=== PATIENT | male | born 1980 | race American Indian/Alaskan Native ===

== ENCOUNTER 2019-08-09 19:21 | Emergency (ER) | payer SELFPAY ==
[2019-08-09 20:54] LABS: Bilirubin,Urine NEG (Negative); Blood,Urine NEG (Negative); Color,Urine Yellow (Yellow); Mucus,Urine FEW /HPF; Protein,Urine <15 mg/dL mg/dL (Negative)
--- NOTE | 2019-08-09 21:52 | Ultrasound Report ---
ULTRASOUND SCROTUM INDICATION / CLINICAL INFORMATION: right testicular. COMPARISON: None available. FINDINGS -- RIGHT TESTIS: Size = 4.6 x 1.9 x 3.6 cm. - Appearance: No significant abnormality. - Cyst or Mass: None. - Color Doppler Flow: No significant abnormality. EPIDIDYMIS: No significant abnormality. HYDROCELE: Small, simple VARICOCELE: None demonstrated. FINDINGS -- LEFT TESTIS: Size = 4.9 x 2.5 x 3.5 cm. - Appearance: No significant abnormality. - Cyst or Mass: None. - Color Doppler Flow: No significant abnormality. EPIDIDYMIS: No significant abnormality. HYDROCELE: Small, simple VARICOCELE: None demonstrated. ADDITIONAL FINDINGS: Multiple enlarged right inguinal lymph nodes, largest measuring 2.8 x 1.7 x 2.6 cm. These correspond to the area of reported pain and swelling. IMPRESSION: 1. Right internal lymphadenopathy. Signer Name: Loi Schroeder MD Signed: 08/09/2019 9:48 PM Workstation Name: [id number]
[2019-08-09 21:58] LABS: Basophils # (Auto) 0.1 K/mm3 (0.0-0.1); Eosinophils # (Auto) 0.1 K/mm3 (0.0-0.4); Eosinophils % (Auto) 1.1 % (0.0-4.3); Hematocrit 37.2 % (35.5-45.6); Hemoglobin 12.7 gm/dl (11.8-15.2); Lymphocytes # (Auto) 1.7 K/mm3 (1.2-5.4); Lymphocytes % (Auto) 31.8 % (13.4-35.0); Mean Corpuscular HGB Conc 34 % (32-34); Mean Corpuscular Volume 91 fl (84-94); Monocytes # (Auto) 0.6 K/mm3 (0.0-0.8); Platelet Count 200 K/mm3 (140-440); Red Blood Count 4.08 M/mm3 (3.65-5.03)
[2019-08-09] MEDS ORDERED: MORPHINE 4 MG/1 ML INJ IV ONE (22:03)
[2019-08-09 22:08] LABS: Alanine Aminotransferase 12 units/L (7-56); Albumin 3.9 g/dL (3.9-5); BUN/Creatinine Ratio 18; Blood Urea Nitrogen 18 mg/dL (9-20); Calcium 9.2 mg/dL (8.4-10.2); Hemolysis Index 22
--- NOTE | 2019-08-09 22:18 | Emergency Department Report ---
HPI - General Chief Complaint: Urogenital-Male Time Seen by Provider: 08/09/19 20:15 - HPI HPI: 39-year-old male presents to the emergency department with a complaint of right groin pain. The patient says that he was seen at [facility] about 4 days ago and diagnosed with a lymph node. However it has gotten larger and more painful since that time. The patient says that he was recently diagnosed with HIV. He has an appointment coming up with a infectious disease physician and has been started on medication but does not yet have a CD4 count or viral load. The patient is also concerned as he says he was told that he had inguinal hernia when he was seen for some swelling in the groin a year ago while in [place]. He has tried [id number] anti-inflammatories without any relief. He says that the swollen nodule is causing pain down his leg and towards the back. No fever. ED Past Medical Hx - Past Medical History Previous Medical History?: Yes Hx HIV: Yes Additional medical history: NEUROPATHY - Surgical History Past Surgical History?: No - Social History Smoking Status: Current Some Day Smoker Substance Use Type: None - Medications Home Medications: Home Medications Medication Instructions Recorded Confirmed Last Taken Type HYDROcodone/APAP 5-325 [[place] 1 each PO Q6HR PRN #10 tablet 08/09/19 Unknown Rx 5/325] ED Review of Systems ROS: Stated complaint: RT SIDE GROIN AREA/PAIN Other details as noted in HPI Comment: All other systems reviewed and negative Constitutional: denies: chills, fever Gastrointestinal: denies: abdominal pain, nausea, vomiting Genitourinary: testicular pain, other (groin pain and swelling) Musculoskeletal: back pain. denies: arthralgia Skin: denies: rash Neurological: denies: numbness, paresthesias Physical Exam - Physical Exam Vital Signs: Vital Signs 08/09/19 20:10 Temperature 98.3 F Pulse Rate 74 Respiratory 18 Rate Blood Pressure 133/77 O2 Sat by Pulse 100 Oximetry ED Course Vital Signs 08/09/19 20:10 Temperature 98.3 F Pulse Rate 74 Respiratory 18 Rate Blood Pressure 133/77 O2 Sat by Pulse 100 Oximetry ED Medical Decision Making - Lab Data Result diagrams: 08/09/19 21:30 08/09/19 21:30 - Radiology Data Radiology results: report reviewed CT ABDOMEN AND PELVIS WITH CONTRAST INDICATION / CLINICAL INFORMATION: Pelvic pain. TECHNIQUE: Axial CT images were obtained through the abdomen and pelvis after 100 mL Omnipaque [address] scans at this location are performed using CT dose reduction for ALARA by means of automated exposure control. COMPARISON: None available. Correlation is made with scrotal ultrasound performed earlier the same day FINDINGS: LOWER CHEST: No significant abnormality. LIVER: No significant abnormality. GALLBLADDER: No significant abnormality. BILE DUCTS: No significant abnormality. PANCREAS: No significant abnormality. SPLEEN: No significant abnormality. ADRENALS: No significant abnormality. RIGHT KIDNEY and URETER: No significant abnormality. LEFT KIDNEY and URETER: No significant abnormality. STOMACH and SMALL BOWEL: No significant abnormality. COLON: No significant abnormality. APPENDIX: Not identified. No evidence to suggest an acute inflammatory process in the right lower quadrant of the abdomen. PERITONEUM: No free fluid. No free air. No fluid collection. LYMPH NODES: No abdominal or pelvic lymphadenopathy. Multiple enlarged right inguinal lymph nodes are again seen, with associated surrounding inflammatory stranding. Also noted are several mildly enlarged left inguinal lymph nodes. The largest node on the right measures about 2 cm in short axis dimension, while the largest on the left is 1.3 cm in short axis. I do not appreciate any enlarged iliac chain or aortocaval nodes, although evaluation of the nodes in the abdominopelv ic cavity is limited by paucity of intra-abdominal fat. AORTA and ARTERIES: No significant abnormality. IVC and VEINS: No significant abnormality. URINARY BLADDER: No significant abnormality. REPRODUCTIVE ORGANS: No significant abnormality. ADDITIONAL FINDINGS: None. SKELETAL SYSTEM: No significant abnormality. IMPRESSION: 1. Bilateral inguinal adenopathy, greater on the right, with surrounding inflammatory changes in the right groin. ULTRASOUND SCROTUM INDICATION / CLINICAL INFORMATION: right testicular. COMPARISON: None available. FINDINGS -- RIGHT TESTIS: Size = 4.6 x 1.9 x 3.6 cm. - Appearance: No significant abnormality. - Cyst or Mass: None. - Color Doppler Flow: No significant abnormality. EPIDIDYMIS: No significant abnormality. HYDROCELE: Small, simple VARICOCELE: None demonstrated. FINDINGS -- LEFT TESTIS: Size = 4.9 x 2.5 x 3.5 cm. - Appearance: No significant abnormality. - Cyst or Mass: None. - Color Doppler Flow: No significant abnormality. EPIDIDYMIS: No significant abnormality. HYDROCELE: Small, simple VARICOCELE: None demonstrated. ADDITIONAL FINDINGS: Multiple enlarged right inguinal lymph nodes, largest measuring 2.8 x 1.7 x 2.6 cm. These correspond to the area of reported pain and swelling. IMPRESSION: 1. Right internal lymphadenopathy. - Medical Decision Making This patient presents with bilateral groin pain with right greater than left and some type of swelling nodule. He has a past medical history, allegedly, of a inguinal hernia. Recently he was seen at [facility] and was found have lymphadenopathy. On examination he does have moderate sized right-sided tender but mobile nodule or mass. A testicular and scrotal ultrasound was done that shows right internal lymphadenopathy. A CT scan of the abdomen and pelvis with IV contrast shows bilateral inguinal lymphadenopathy with right greater than left. Labs are unremarkable. Vital signs stable throughout his ED course. He appears safe for discharge home. He has follow-up with an infectious disease doctor early next week. He will return to the emergency Department with any worsening of his symptoms or any acute distress. - Differential Diagnosis lymphadenopathy, inguinal hernia, [place] Critical Care Time: No Critical care attestation.: If time is entered above; I have spent that time in minutes in the direct care of this critically ill patient, excluding procedure time. ED Disposition Clinical Impression: Inguinal lymphadenopathy Disposition: DC-01 TO HOME OR SELFCARE Is pt being admited?: No Condition: Stable Instructions: Lymphadenopathy (ED) Additional Instructions: Please follow-up with your primary care physician or infectious disease physician regarding your lymphadenopathy. Return to the emergency Department with any worsening of your symptoms or any acute distress. You have been prescribed a medication that is sedating and therefore should not be taken prior to driving, working, and responsible for children and in no way should be mixed with alcohol of any quantity. Prescriptions: HYDROcodone/APAP 5-325 [[place] 5/325] 1 each PO Q6HR PRN #10 tablet PRN Reason: Pain Referrals: PRIMARY CARE, [Primary Care Provider] - 2-3 Days Time of Disposition: 23:58
--- NOTE | 2019-08-09 23:36 | Cat Scan Report ---
CT ABDOMEN AND PELVIS WITH CONTRAST INDICATION / CLINICAL INFORMATION: Pelvic pain. TECHNIQUE: Axial CT images were obtained through the abdomen and pelvis after 100 mL Omnipaque [address] scans at this location are performed using CT dose reduction for ALARA by means of automated exposure control. COMPARISON: None available. Correlation is made with scrotal ultrasound performed earlier the same day FINDINGS: LOWER CHEST: No significant abnormality. LIVER: No significant abnormality. GALLBLADDER: No significant abnormality. BILE DUCTS: No significant abnormality. PANCREAS: No significant abnormality. SPLEEN: No significant abnormality. ADRENALS: No significant abnormality. RIGHT KIDNEY and URETER: No significant abnormality. LEFT KIDNEY and URETER: No significant abnormality. STOMACH and SMALL BOWEL: No significant abnormality. COLON: No significant abnormality. APPENDIX: Not identified. No evidence to suggest an acute inflammatory process in the right lower michele drant of the abdomen. PERITONEUM: No free fluid. No free air. No fluid collection. LYMPH NODES: No abdominal or pelvic lymphadenopathy. Multiple enlarged right inguinal lymph nodes are again seen, with associated surrounding inflammatory stranding. Also noted are several mildly enlarg ed left inguinal lymph nodes. The largest node on the right measures about 2 cm in short axis dimensi on, while the largest on the left is 1.3 cm in short axis. I do not appreciate any enlarged iliac abdelrahman in or aortocaval nodes, although evaluation of the nodes in the abdominopelvic cavity is limited by p aucity of intra-abdominal fat. AORTA and ARTERIES: No significant abnormality. IVC and VEINS: No significant abnormality. URINARY BLADDER: No significant abnormality. REPRODUCTIVE ORGANS: No significant abnormality. ADDITIONAL FINDINGS: None. SKELETAL SYSTEM: No significant abnormality. IMPRESSION: 1. Bilateral inguinal adenopathy, greater on the right, with surrounding inflammatory changes in the right groin. Signer Name: Loi Schroeder MD Signed: 08/09/2019 11:32 PM Workstation Name: [id number]
[2019-08-10 00:39] VITALS: BP 126/84
== END 2019-08-10 00:40 | disposition home or self-care (01) ==
LOC: ED 19:21
DX: R59.0 Localized enlarged lymph nodes (principal); F17.200 Nicotine dependence, unspecified, uncomplicated; Z88.8 Allergy status to other drugs, medicaments and biological substances; Z88.2 Allergy status to sulfonamides
CPT/HCPCS: 36415; 74177; 80053; 81001; 82140; 85025; 93975; 96374; 99284; J2270; Q9967

== ENCOUNTER 2020-07-26 11:22 | Emergency (ER) | payer MEDICAID ==
--- NOTE | 2020-07-26 11:37 | Event Note ---
ED Screening Note Date of service: 07/26/20 Time: 11:36 ED Screening Note: Patient complains of cough, shortness of breath, body aches, and chills x1 week. Patient has history of HIV, states compliance with antiretroviral medications This initial assessment/diagnostic orders/clinical plan/treatment(s) is/are subject to change based on patients health status, clinical progression and re- assessment by fellow clinical providers in the ED. Further treatment and workup at subsequent clinical providers discretion. Patient/guardian urged not to elope from the ED as their condition may be serious if not clinically assessed and managed. Initial orders include: Labs Chest x-ray
[2020-07-26 11:41] VITALS: BP 152/104
--- NOTE | 2020-07-26 12:08 | XRay Report ---
CHEST 2 VIEWS INDICATION / CLINICAL INFORMATION: Shortness of breath and cough for one week. COMPARISON: None available. FINDINGS: SUPPORT DEVICES: None. HEART / MEDIASTINUM: The heart size and pulmonary vasculature are normal. LUNGS / PLEURA: No significant pulmonary or pleural abnormality. No pneumothorax. ADDITIONAL FINDINGS: No significant additional findings. IMPRESSION: No acute findings. Signer Name: Andrea Hamm MD Signed: 07/26/2020 12:03 PM Workstation Name: [id number]
[2020-07-26 12:28] LABS: Basophils % (Auto) 0.6 % (0.0-1.8); Eosinophils # (Auto) 0.1 K/mm3 (0.0-0.4); Eosinophils % (Auto) 2.7 % (0.0-4.3); Hematocrit 40.8 % (35.5-45.6); Hemoglobin 13.9 gm/dl (11.8-15.2); Lymphocytes # (Auto) 1.3 K/mm3 (1.2-5.4); Lymphocytes % (Auto) 38.2 % (13.4-35.0); Mean Corpuscular HGB Conc 34 % (32-34); Mean Corpuscular Volume 88 fl (84-94); Monocytes # (Auto) 0.3 K/mm3 (0.0-0.8); Monocytes % (Auto) 10.3 % (0.0-7.3); Platelet Count 139 K/mm3 (140-440); Red Blood Count 4.64 M/mm3 (3.65-5.03); Red Cell Distribution Width 13.5 % (13.2-15.2)
[2020-07-26 12:51] LABS: Alanine Aminotransferase 12 units/L (7-56); Albumin 4.1 g/dL (3.9-5); BUN/Creatinine Ratio 10; Blood Urea Nitrogen 10 mg/dL (9-20); Calcium 9.7 mg/dL (8.4-10.2); Hemolysis Index 7
[2020-07-26] MEDS ORDERED: ACETAMINOPHEN 500 MG TAB PO ONE (13:16)
[2020-07-26] MEDS ORDERED: BENZONATATE 100 MG CAP PO ONE (13:16)
--- NOTE | 2020-07-26 13:41 | Emergency Department Report ---
- General Chief Complaint: Dyspnea/Respdistress Stated Complaint: COUGH/WEAK/TWYLA Time Seen by Provider: 07/26/20 11:36 Source: patient Mode of arrival: Ambulatory Limitations: No Limitations - History of Present Illness Initial Comments: This is a 39-year-old male nontoxic, well nourished in appearance, no acute signs of distress presents to the ED with c/o of productive cough, fever, some SOB, chills, body aches, rhinorrhea, nasal congestion x several days. Patient describes productive cough as yellow mucus production. Patient denies any sick contacts. Patient denies any recent travels, long car, recent hospital stays. Patient denies any calf pain or calf tenderness. Patient denies any chest pain, fever, chills, nausea, vomiting, hemoptysis, numbness, tingling, headache or stiff neck. Patient stated has history of HIV and has undetectable CD4 count and is compliant with PCP. MD Complaint: cough, rhinorrhea, nasal congestion -: days(s) Severity: mild Severity scale (0 -10): 3 Quality: aching Consistency: constant Improves With: nothing Worsens With: nothing Associated Symptoms: rhinorrhea, nasal congestion, cough, shortness of breath. denies: fever, chills, myalgias, diaphoresis, headache, sore throat, stiff neck, chest pain, abdominal pain, nausea, vomiting, diarrhea, dysuria, rash, confusion, right sweats, weight loss, epistaxis, hoarseness, ear pain Treatments Prior to Arrival: none - Related Data Previous Rx's Medication Instructions Recorded Last Taken Type HYDROcodone/APAP 5-325 [[place] 1 each PO Q6HR PRN #10 tablet 08/09/19 Unknown Rx 5/325] Amoxicillin [Trimox CAP] 500 mg PO Q8H #21 capsule 02/09/20 Unknown Rx Ibuprofen [Motrin 800 MG tab] 800 mg PO Q8HR PRN #30 tablet 02/09/20 Unknown Rx Nystas/Diphen/Xyl Visc/Mylanta 15 ml MM Q6H PRN #120 ml 02/09/20 Unknown Rx [Magic Mouthwash] Azithromycin [Zithromax Z-ABELARDO] 250 mg PO DAILY #6 tablet 07/26/20 Unknown Rx Benzonatate [Tessalon Perles] 100 mg PO Q12H PRN #12 capsule 07/26/20 Unknown Rx Allergies Allergy/AdvReac Type Severity Reaction Status Date / Time gabapentin Allergy Anaphylaxis Verified 07/26/20 11:35 Sulfa (Sulfonamide Allergy Anaphylaxis Verified 07/26/20 11:35 Antibiotics) ED Review of Systems ROS: Stated complaint: COUGH/WEAK/TWYLA Other details as noted in HPI Constitutional: denies: chills, fever Eyes: denies: eye pain, eye discharge, vision change ENT: congestion. denies: ear pain, throat pain Respiratory: cough, shortness of breath. denies: wheezing Cardiovascular: denies: chest pain, palpitations Endocrine: no symptoms reported Gastrointestinal: denies: abdominal pain, nausea, diarrhea Genitourinary: denies: urgency, dysuria Musculoskeletal: denies: back pain, joint swelling, arthralgia Skin: denies: rash, lesions Neurological: denies: headache, weakness, paresthesias Psychiatric: denies: anxiety, depression Hematological/Lymphatic: denies: easy bleeding, easy bruising ED Past Medical Hx - Past Medical History Hx HIV: Yes Additional medical history: NEUROPATHY, Back pain - Surgical History Hx Appendectomy: Yes Additional Surgical History: BIOPSY LYMPH NODE - Social History Smoking Status: Current Every Day Smoker Substance Use Type: None - Medications Home Medications: Home Medications Medication Instructions Recorded Confirmed Last Taken Type HYDROcodone/APAP 5-325 [[place] 1 each PO Q6HR PRN #10 tablet 08/09/19 Unknown Rx 5/325] Amoxicillin [Trimox CAP] 500 mg PO Q8H #21 capsule 02/09/20 Unknown Rx Ibuprofen [Motrin 800 MG tab] 800 mg PO Q8HR PRN #30 tablet 02/09/20 Unknown Rx Nystas/Diphen/Xyl Visc/Mylanta 15 ml MM Q6H PRN #120 ml 02/09/20 Unknown Rx [Magic Mouthwash] Azithromycin [Zithromax Z-ABELARDO] 250 mg PO DAILY #6 tablet 07/26/20 Unknown Rx Benzonatate [Tessalon Perles] 100 mg PO Q12H PRN #12 capsule 07/26/20 Unknown Rx ED Physical Exam - General Limitations: No Limitations General appearance: alert, in no apparent distress - Head Head exam: Present: atraumatic, normocephalic - Eye Eye exam: Present: normal appearance - Neck Neck exam: Present: normal inspection, full ROM. Absent: tenderness, meningismus, lymphadenopathy - Respiratory Respiratory exam: Present: normal lung sounds bilaterally. Absent: respiratory distress, wheezes, rales, rhonchi, stridor, chest wall tenderness, accessory muscle use, decreased breath sounds, prolonged expiratory - Cardiovascular Cardiovascular Exam: Present: regular rate, normal rhythm, normal heart sounds. Absent: bradycardia, tachycardia, irregular rhythm, systolic murmur, diastolic murmur, rubs, gallop - Extremities Exam Extremities exam: Present: normal inspection, full ROM - Back Exam Back exam: Present: normal inspection, full ROM - Neurological Exam Neurological exam: Present: alert, oriented X3, normal gait - Psychiatric Psychiatric exam: Present: normal affect, normal mood - Skin Skin exam: Present: warm, dry, intact, normal color. Absent: rash ED Course Vital Signs 07/26/20 07/26/20 11:35 13:24 Temperature 97.4 F L Pulse Rate 63 Respiratory 18 18 Rate Blood Pressure 152/104 O2 Sat by Pulse 96 Oximetry - Reevaluation(s) Reevaluation #1: 07/26/20 13:44 Patient is speaking in full sentences with no signs of distress noted. ED Medical Decision Making - Lab Data Result diagrams: 07/26/20 12:04 07/26/20 12:04 Lab Results 07/26/20 07/26/20 Range/Units 12:04 12:04 WBC 3.4 L (4.5-11.0) K/mm3 RBC 4.64 (3.65-5.03) M/mm3 Hgb 13.9 (11.8-15.2) gm/dl Hct 40.8 (35.5-45.6) % MCV 88 (84-94) fl MCH 30 (28-32) pg MCHC 34 (32-34) % RDW 13.5 (13.2-15.2) % Plt Count 139 L (140-440) K/mm3 Lymph % (Auto) 38.2 H (13.4-35.0) % [place] % (Auto) 10.3 H (0.0-7.3) % Eos % (Auto) 2.7 (0.0-4.3) % Baso % (Auto) 0.6 (0.0-1.8) % Lymph # (Auto) 1.3 (1.2-5.4) K/mm3 [place] # (Auto) 0.3 (0.0-0.8) K/mm3 Eos # (Auto) 0.1 (0.0-0.4) K/mm3 Baso # (Auto) 0.0 (0.0-0.1) K/mm3 Seg Neutrophils % 48.2 (40.0-70.0) % Seg Neutrophils # 1.6 L (1.8-7.7) K/mm3 Sodium 142 (137-145) mmol/L Potassium 3.7 (3.6-5.0) mmol/L Chloride 103.6 (98-107) mmol/L Carbon Dioxide 30 (22-30) mmol/L Anion Gap 12 mmol/L BUN 10 (9-20) mg/dL Creatinine 1.0 (0.8-1.3) mg/dL Estimated GFR > 60 ml/min BUN/Creatinine Ratio 10 % Glucose 79 (75-100) mg/dL Calcium 9.7 (8.4-10.2) mg/dL Total Bilirubin 0.30 (0.1-1.2) mg/dL AST 20 (5-40) units/L ALT 12 (7-56) units/L Alkaline Phosphatase 75 (35-129) units/L Total Protein 7.2 (6.3-8.2) g/dL Albumin 4.1 (3.9-5) g/dL Albumin/Globulin Ratio 1.3 % - Radiology Data Referring Physician: FRANCHESCA HAZEL Patient Name: ZAINA MORALES Date of : 1980 Sex: Male Report Date: 2020-07-26 Report Status: Finalized [address] [address] XRay Report Signed Patient: ZAINA MORALES MR#: [id number] : 1980 Acct:[id number] Age/Sex: 39 / M ADM Date: 07/26/20 Loc: ED Attending Dr: Ordering Physician: FRANCHESCA HAZEL Date of Service: 07/26/20 Procedure(s): XR chest routine 2V Accession Number(s): [id number] cc: FRANCHESCA HAZEL Fluoro Time In Minutes: CHEST 2 VIEWS INDICATION / CLINICAL INFORMATION: Shortness of breath and cough for one week. COMPARISON: None available. FINDINGS: SUPPORT DEVICES: None. HEART / MEDIASTINUM: The heart size and pulmonary vasculature are normal. LUNGS / PLEURA: No significant pulmonary or pleural abnormality. No pneumothorax. ADDITIONAL FINDINGS: No significant additional findings. IMPRESSION: No acute findings. Signer Name: Andrea Hamm MD Signed: 07/26/2020 12:03 PM Workstation Name: [id number] Transcribed By: RT Dictated By: Andrea Hamm MD Electronically Authenticated By: Andrea Hamm MD Signed Date/Time: 07/26/201202 DD/ 01 TD/TT: - Medical Decision Making This is a 39-year-old male that presents with suspected covid. Patient is stable and was examined by me. Chest x-ray has been obtained and dictated by radiologist with normal exam. Patient is notified of x-ray results with no questions noted. Patient was instructed and educated on signs and symptoms of COVID and to self quarantine and seek medical attention as soon as possible if symptoms wrosen. Due to patient having symptoms of upper respiratory infection with HIV and worsening I will treat patient empirically with zpak. Patient was instructed to increase hydration, rest and take Tylenol for fever episodes. Patient received Tylenol and tesslone perrls in the ED. Vitals stable. Patient is nonfebrile and normal heart rate. Patient was instructed Follow-up with a primary care doctor in 3-5 days or if symptoms worsen and continue return to emergency room as soon as possible. At time time of discharge, the patient does not seem toxic or ill in appearance. No acute signs of distress noted. Patient agrees to discharge treatment plan of care. No further questions noted by the patient.nt. Critical care attestation.: If time is entered above; I have spent that time in minutes in the direct care of this critically ill patient, excluding procedure time. ED Disposition Clinical Impression: Suspected COVID-19 virus infection Disposition: DC-01 TO HOME OR SELFCARE Is pt being admited?: No Does the pt Need Aspirin: No Condition: Stable Instructions: COVID-19 Frequently Asked Questions, COVID-19, COVID-19: How to Protect Yourself and Others - CDC, COVID-19 Additional Instructions: Follow-up with a primary care doctor in 3-5 days or if symptoms worsen and continue return to emergency room as soon as possible. As educated and instructed to you must self quarantine yourself and people that you have been in close contact with similar symptoms for the next 14 days. Please see your nearest health department or primary care doctor that you are referred to for COVID testing. Increased rest, hydration, and take Tylenol as prescribed for fever episode. Prescriptions: Benzonatate [Tessalon Perles] 100 mg PO Q12H PRN #12 capsule PRN Reason: Cough Azithromycin [Zithromax Z-ABELARDO] 250 mg PO DAILY #6 tablet Referrals: PRIMARY CAREMD [Primary Care Provider] - 3-5 Days ELENA WEN MD [Staff Physician] - 3-5 Days Forms: Work/School Release Form(ED)
== END 2020-07-26 14:01 | disposition home or self-care (01) ==
LOC: ED 11:22
DX: R05 Cough (principal); Z20.828 Contact with and (suspected) exposure to other viral communicable diseases; R50.9 Fever, unspecified; R06.02 Shortness of breath; F17.200 Nicotine dependence, unspecified, uncomplicated; Z21 Asymptomatic human immunodeficiency virus [HIV] infection status; Z90.49 Acquired absence of other specified parts of digestive tract; Z98.890 Other specified postprocedural states; Z79.1 Long term (current) use of non-steroidal anti-inflammatories (NSAID); Z79.2 Long term (current) use of antibiotics; Z79.899 Other long term (current) drug therapy; Z88.2 Allergy status to sulfonamides; Z88.8 Allergy status to other drugs, medicaments and biological substances
CPT/HCPCS: 36415; 71046; 80053; 85025

== ENCOUNTER 2021-01-17 17:08 | Emergency (ER) | payer MEDICAID ==
[2021-01-17 17:45] VITALS: BP 136/94
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
== END 2021-01-17 21:50 | disposition left against medical advice (07) ==
LOC: ED 17:08
DX: M79.89 Other specified soft tissue disorders (principal); Z53.21 Procedure and treatment not carried out due to patient leaving prior to being seen by health care provider

== ENCOUNTER 2021-03-31 21:32 | Emergency (ER) | payer MEDICAID ==
[2021-03-31 23:23] VITALS: BP 116/98
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
== END 2021-04-01 04:20 | disposition home or self-care (01) ==
LOC: ED 21:32
DX: G57.92 Unspecified mononeuropathy of left lower limb (principal); H60.92 Unspecified otitis externa, left ear; F17.200 Nicotine dependence, unspecified, uncomplicated; Z79.899 Other long term (current) drug therapy; Z88.2 Allergy status to sulfonamides; Z88.8 Allergy status to other drugs, medicaments and biological substances; Z98.890 Other specified postprocedural states
CPT/HCPCS: 99282

== ENCOUNTER 2021-08-23 23:42 | Emergency (ER) | payer MEDICAID | END 2021-08-24 00:15 | disposition left against medical advice (07) | LOC: ED 23:42 | DX: J02.9 Acute pharyngitis, unspecified (principal); Z53.21 Procedure and treatment not carried out due to patient leaving prior to being seen by health care provider ==

== ENCOUNTER 2021-12-14 11:58 | Emergency (ER) | payer MEDICAID | END 2021-12-14 12:39 | disposition left against medical advice (07) | LOC: ED 11:58 | DX: M79.674 Pain in right toe(s) (principal); Z53.21 Procedure and treatment not carried out due to patient leaving prior to being seen by health care provider ==

== ENCOUNTER 2022-01-31 21:29 | Inpatient (IN) | payer MEDICAID ==
--- NOTE | 2022-02-01 02:26 | XRay Report ---
XR chest 1V ap INDICATION / CLINICAL INFORMATION: leg weakness. COMPARISON: 07/26/2020 FINDINGS: SUPPORT DEVICES: None. HEART /PULMONARY VASCULATURE: No significant abnormality. LUNGS / PLEURA: No acute pulmonary or pleural abnormality. No pneumothorax. ADDITIONAL FINDINGS: No significant additional findings. IMPRESSION: 1. No acute findings. Signer Name: Mic Smith MD Signed: 02/01/2022 2:21 AM Workstation Name: [id number]
[2022-02-01 02:47] LABS: Alanine Aminotransferase 14 units/L (7-56); Albumin 3.6 g/dL (3.9-5); BUN/Creatinine Ratio 11; Blood Urea Nitrogen 11 mg/dL (9-20); Calcium 9.1 mg/dL (8.4-10.2); Hemoglobin 12.4 gm/dl (11.8-15.2); Hemolysis Index 7; Mean Corpuscular HGB Conc 34 % (32-34); Mean Corpuscular Volume 85 fl (84-94); Platelet Count 169 K/mm3 (140-440); Red Blood Count 4.36 M/mm3 (3.65-5.03); Red Cell Distribution Width 14.1 % (13.2-15.2)
[2022-02-01 03:04] LABS: Erythrocyte Sedimentation Rate 37 mm/Hr (0-20)
--- NOTE | 2022-02-01 03:10 | Cat Scan Report ---
CT HEAD WITHOUT CONTRAST INDICATION / CLINICAL INFORMATION: leg weakness; hx of hiv. TECHNIQUE: All CT scans at this location are performed using CT dose reduction for ALARA by means of automated exposure control. COMPARISON: None available. FINDINGS: BRAIN PARENCHYMA: No acute intracranial hemorrhage. No evidence of recent infarct. No mass effect or midline shift. VENTRICULAR SYSTEM/EXTRA-AXIAL SPACES: Ventricles are normal for age. No extra-axial fluid collection . ORBITS: Normal as visualized. SKELETAL SYSTEM/SOFT TISSUES: Normal bones and soft tissues. PARANASAL SINUSES/MASTOID AIR CELLS: No significant abnormality. ADDITIONAL FINDINGS: None. IMPRESSION: 1. No acute intracranial abnormality. Signer Name: Mci Smith MD Signed: 02/01/2022 3:05 AM Workstation Name: [id number]
--- NOTE | 2022-02-01 03:10 | Cat Scan Report ---
CT CERVICAL SPINE WITHOUT CONTRAST INDICATION / CLINICAL INFORMATION: leg weakness; hx of hiv. TECHNIQUE: Axial CT images were obtained through the cervical spine. Sagittal and coronal reformatted images were produced. All CT scans at this location are performed using CT dose reduction for ALARA by means of automated exposure control. COMPARISON: None available. FINDINGS: Alignment: Normal. No acute subluxation. Geographic Bone Lesion: None present. Fracture: No acute fracture. Degenerative Changes: Mild multilevel degenerative changes are present. Epidural Hematoma: Not present. Prevertebral / Paraspinal Soft Tissues: Unremarkable. IMPRESSION: No acute osseous findings in the cervical spine. Signer Name: Mic Smith MD Signed: 02/01/2022 3:05 AM Workstation Name: [id number]
[2022-02-01 03:16] LABS: INR 0.87 (0.87-1.13)
--- NOTE | 2022-02-01 03:17 | Cat Scan Report ---
EXAMINATION: CT thoracic spine wo con. HISTORY: leg weakness; hx of hiv TECHNIQUE: Axial CT examination of the thoracic spine was obtained, with sagittal and coronal reforma tions. All CT scans at this location are performed using CT dose reduction for ALARA by means of auto mated exposure control. COMPARISON: None available. FINDINGS: Alignment: Normal. No evidence of acute subluxation. Geographic Bone Lesion: None present. Fracture: No acute fracture. Degenerative Changes: Mild multilevel degenerative changes are present. Epidural Hematoma: Not present. Paravertebral Soft Tissues: Unremarkable. Other: Nonspecific mild diffuse wall thickening of the esophagus. IMPRESSION: 1. No acute osseous findings of the thoracic spine. 2. Nonspecific mild diffuse wall thickening of the esophagus. This may reflect esophagitis. Signer Name: Mic Smith MD Signed: 02/01/2022 3:13 AM Workstation Name: [id number]
--- NOTE | 2022-02-01 03:19 | Cat Scan Report ---
EXAMINATION: CT lumbar spine wo con. HISTORY: leg weakness; hx of hiv TECHNIQUE: Axial CT examination of the lumbar spine was obtained, with sagittal and coronal reformati ons. All CT scans at this location are performed using CT dose reduction for ALARA by means of automa gloria exposure control. COMPARISON: None available. FINDINGS: Alignment: Normal. No acute subluxation. Fracture: No acute fracture. Degenerative Changes: Mild multilevel lumbar spondylosis, greatest at L4-L5. No significant central c anal narrowing. Soft Tissues/Retroperitoneal Structures: Unremarkable Other: None IMPRESSION: No acute findings. Signer Name: Mic Smith MD Signed: 02/01/2022 3:15 AM Workstation Name: [id number]
[2022-02-01] MEDS ORDERED: MORPHINE 4 MG/1 ML INJ IV ONE ×2 (03:42→10:43)
[2022-02-01] MEDS ORDERED: ONDANSETRON 4 MG/2 ML INJ IV ONE ×2 (03:42→10:43)
--- NOTE | 2022-02-01 04:16 | Emergency Department Report ---
<AMY CRUZ - Last Filed: 02/01/22 14:37> ED General Adult HPI - General Chief complaint: Neck Pain/Injury Stated complaint: NUMBNESS/BODY PAIN NECK Time Seen by Provider: 02/01/22 00:43 - Related Data Previous Rx's Medication Instructions Recorded Last Taken Type HYDROcodone/APAP 5-325 [[place] 1 each PO Q6HR PRN #10 tablet 08/09/19 Unknown Rx 5/325] Amoxicillin [Trimox CAP] 500 mg PO Q8H #21 capsule 02/09/20 Unknown Rx Ibuprofen [Motrin 800 MG tab] 800 mg PO Q8HR PRN #30 tablet 02/09/20 Unknown Rx Nystas/Diphen/Xyl Visc/Mylanta 15 ml MM Q6H PRN #120 ml 02/09/20 Unknown Rx [Magic Mouthwash] Azithromycin [Zithromax Z-ABELARDO] 250 mg PO DAILY #6 tablet 07/26/20 Unknown Rx Benzonatate [Tessalon Perles] 100 mg PO Q12H PRN #12 capsule 07/26/20 Unknown Rx Ketorolac [Toradol] 10 mg PO Q6H PRN #14 tablet 04/01/21 Unknown Rx Neomy/Polymyx B/Hc (Otic) Soln 4 drops OT TID #1 bottle 04/01/21 Unknown Rx [Cortisporin (Otic) Soln] Allergies Allergy/AdvReac Type Severity Reaction Status Date / Time gabapentin Allergy Mild Anaphylaxis Verified 02/01/22 08:10 Sulfa (Sulfonamide Allergy Mild Anaphylaxis Verified 02/01/22 08:09 Antibiotics) ED Past Medical Hx - Medications Home Medications: Home Medications Medication Instructions Recorded Confirmed Last Taken Type HYDROcodone/APAP 5-325 [Beals 1 each PO Q6HR PRN #10 tablet 08/09/19 Unknown Rx 5/325] Amoxicillin [Trimox CAP] 500 mg PO Q8H #21 capsule 02/09/20 Unknown Rx Ibuprofen [Motrin 800 MG tab] 800 mg PO Q8HR PRN #30 tablet 02/09/20 Unknown Rx Nystas/Diphen/Xyl Visc/Mylanta 15 ml MM Q6H PRN #120 ml 02/09/20 Unknown Rx [Magic Mouthwash] Azithromycin [Zithromax Z-ABELARDO] 250 mg PO DAILY #6 tablet 07/26/20 Unknown Rx Benzonatate [Tessalon Perles] 100 mg PO Q12H PRN #12 capsule 07/26/20 Unknown Rx Ketorolac [Toradol] 10 mg PO Q6H PRN #14 tablet 04/01/21 Unknown Rx Neomy/Polymyx B/Hc (Otic) Soln 4 drops OT TID #1 bottle 04/01/21 Unknown Rx [Cortisporin (Otic) Soln] ED Medical Decision Making - Lab Data Result diagrams: 02/01/22 02:08 02/01/22 02:08 - Medical Decision Making Patient examined by me. Patient has muscle power of 0 bilaterally in the lower extremity. Loss of sensation. Patient denied any bowel or bladder incontinence. Patient also gave me a history that he had fever 1 week ago for whole week. He denies any recent injury. He is complaining of neck pain thoracic pain and lumbar spine pain. CT brain, CT cervical spine, CT thoracic and lumbar spine negative for acute finding. MRI of the brain is unremarkable. MRI of the cervical spine is negative for acute finding. MRI of the thoracic spine is unremarkable. MRI of the lumbar spine showed minimal disc bulge, mild to moderate facet hypertrophy, mild to moderate martinez narrowing. Encroachment upon L5 without impingement. I discussed the patient with Dr. Griggs, neurosurgeon on-call and informed him about the MRI finding. Dr. Griggs stating that this is not a neurosurgeon case and he think this is most likely inflammatory like transverse myelitis and he advised to consult neurologist. I discussed the patient with Dr. Garcia, neurologist on-call. He advised to start patient on Solu-Medrol 1000 mg daily for 3 days and he will assess the patient. Critical Care Time: Yes Critical care time in (mins) excluding proc time.: 45 ED Disposition Clinical Impression: Lower extremity weakness, Numbness, Weakness, Transverse myelitis Disposition: ADMITTED INPATIENT Is pt being admited?: Yes Condition: Stable Referrals: [facility] [Primary Care Provider] - 3-5 Days <MAG COSME - Last Filed: 02/01/22 15:17> ED General Adult HPI - General Source: patient, family Mode of arrival: Wheelchair Limitations: Physical Limitation - History of Present Illness Initial comments: Patient is a 41-year-old male presented emergency department complaint of lower Extremity numbness and weakness for the past 3 days. Patient has history of HIV on Biktar[place] unknown last CD4 count. He denies any recent fever or illness. He states this is never happened before the past couple of days. He states it is off and on. He also complains of back pain. Severity scale (0 -10): 8 ED Review of Systems ROS: Stated complaint: NUMBNESS/BODY PAIN NECK Other details as noted in HPI Constitutional: denies: chills, fever Eyes: denies: eye pain, eye discharge, vision change ENT: denies: ear pain, throat pain Respiratory: denies: cough, shortness of breath, wheezing Cardiovascular: denies: chest pain, palpitations Endocrine: no symptoms reported Gastrointestinal: denies: abdominal pain, nausea, diarrhea Genitourinary: denies: urgency, dysuria Musculoskeletal: back pain. denies: joint swelling, arthralgia Skin: denies: rash, lesions Neurological: weakness, numbness. denies: headache, paresthesias Psychiatric: denies: anxiety, depression Hematological/Lymphatic: denies: easy bleeding, easy bruising ED Past Medical Hx - Past Medical History Hx HIV: Yes Additional medical history: NEUROPATHY, Back pain - Surgical History Hx Appendectomy: Yes Additional Surgical History: BIOPSY LYMPH NODE - Social History Smoking Status: Current Every Day Smoker ED Physical Exam - General Limitations: Physical Limitation General appearance: alert, in no apparent distress - Head Head exam: Present: atraumatic, normocephalic - Eye Eye exam: Present: normal appearance - ENT ENT exam: Present: mucous membranes moist - Neck Neck exam: Present: normal inspection - Respiratory Respiratory exam: Present: normal lung sounds bilaterally. Absent: respiratory distress - Cardiovascular Cardiovascular Exam: Present: regular rate, normal rhythm. Absent: systolic murmur, diastolic murmur, rubs, gallop - GI/Abdominal GI/Abdominal exam: Present: soft, normal bowel sounds - Rectal Rectal exam: Present: normal rectal tone - Extremities Exam Extremities exam: Present: normal inspection - Back Exam Back exam: Present: tenderness - Neurological Exam Neurological exam: Present: alert, oriented X3, motor sensory deficit (To the lower extremities. He is able to move them but they are both weak. He has decreased reflexes bilaterally.) - Psychiatric Psychiatric exam: Present: normal affect, normal mood - Skin Skin exam: Present: warm, dry, intact, normal color. Absent: rash ED Course Vital Signs 01/31/22 02/01/22 02/01/22 21:38 03:59 08:06 Temperature 98.6 F Pulse Rate 74 53 L Respiratory 18 16 14 Rate Blood Pressure 148/102 Blood Pressure 137/97 [Left] O2 Sat by Pulse 98 98 Oximetry 02/01/22 02/01/22 10:12 12:09 Temperature Pulse Rate 68 55 L Respiratory 16 16 Rate Blood Pressure Blood Pressure 134/78 134/78 [Left] O2 Sat by Pulse 100 99 Oximetry - Reevaluation(s) Reevaluation #1: 02/01/22 06:56 Lumbar puncture has been performed. Patient is awaiting admission for further management. Neurosurgery is to be consulted by oncoming doctor. - Lumbar Puncture Consent Obtained: written consent Time Out Performed: Yes Indication for Procedure: other (Eval for transverse myelitis) Patient Position: left lateral decubitus Skin Prep: Povidone-Iodine 1% Local Anesthetic Used: Lidocaine 1% Amount of anesthesia used (mls): 2 Spinal Needle Gauge: 20G Spinal Needle Length: 3.5in Interspace Used: L4-L5 Opening Pressure (cmH20): 20 Fluid Initially Obtained: clear Complications: none Patient Tolerated Procedure: well ED Medical Decision Making - Lab Data Result diagrams: 02/01/22 02:08 02/01/22 02:08 - Radiology Data Radiology results: report reviewed, image reviewed - Medical Decision Making This is a 41-year-old male presents with 3-day history of numbness and weakness to the lower extremities that comes and goes. Patient does report history of HIV and neuropathy. Differential includes transverse myelitis, cauda equina, intracranial abnormality. Plan for CT imaging of the brain, C-spine, T and L- spine's. We will also likely do a lumbar punctureand patient to be admitted.. Critical care attestation.: If time is entered above; I have spent that time in minutes in the direct care of this critically ill patient, excluding procedure time. ED Disposition Is pt being admited?: Yes Does the pt Need Aspirin: No
[2022-02-01] MEDS ORDERED: SODIUM CHLORIDE 0.9% 1000 ML 1,000 ML IV ONE ×2 (04:20→10:43)
[2022-02-01 04:40] LABS: Bilirubin,Urine NEG (Negative); Blood,Urine NEG (Negative); Color,Urine Straw (Yellow); Mucus,Urine FEW /HPF; Protein,Urine <15 mg/dL mg/dL (Negative); RBC,Urine < 1.0 /HPF (0.0-6.0); Urobilinogen,Urine < 2.0 mg/dL (<2.0); WBC,Urine < 1.0 /HPF (0.0-6.0)
[2022-02-01] MEDS ORDERED: LIDOCAINE (1%) 10 MG/1 ML VIAL 20 ML MDV INFILTRATI ONE (04:54)
[2022-02-01 05:04] LABS: Basophils % (Manual) 0 % (0.0-1.8); Monocytes % (Manual) 0 % (0.0-7.3); Total Cells Counted 100
[2022-02-01 05:06] LABS: Platelet Estimate Consistent w Auto; RBC Morphology Normal
[2022-02-01 06:46] LABS: Appearance,CSF Clear; Total Cells Counted 100 /mm3
[2022-02-01 06:47] LABS: Glucose,CSF 60 mg/dL
[2022-02-01 06:48] LABS: White Blood Cell,CSF 31 /mm3 (1-10)
[2022-02-01 06:49] LABS: Basophils CSF 0 %; Red Blood Cell,CSF 3 /mm3 (0-0)
--- NOTE | 2022-02-01 12:11 | Magnetic Resonance Report ---
MR brain wo con INDICATION / CLINICAL INFORMATION: 41 years Male; leg weakness. TECHNIQUE: Multiplanar, multisequence MR images of the brain were obtained. COMPARISON: CT - 02/01/2022 FINDINGS: BRAIN / INTRACRANIAL CONTENTS: No acute hemorrhage, mass effect, midline shift, hydrocephalus, or acu te, large territorial infarct. No chronic infarct or atrophy. No significant white matter abnormality . CRANIOCERVICAL JUNCTION: No significant abnormality. VASCULAR FLOW-VOIDS: No significant abnormality. ORBITS: No significant abnormality of visualized orbits. SINUSES / MASTOIDS: Opacification of the right sphenoid sinus noted. ADDITIONAL FINDINGS: Prominent soft tissue is seen in the roof of the nasopharynx, presumably related to reactive adenoidal tissue. Please clinically correlate. IMPRESSION: 1. No focal mass, hemorrhage, hydrocephalus, or acute ischemia. Signer Name: Joel Fermin MD, III Signed: 02/01/2022 12:07 PM Workstation Name: [email or web address]
--- NOTE | 2022-02-01 12:13 | Magnetic Resonance Report ---
MR thoracic spine wo con INDICATION / CLINICAL INFORMATION: 41 years Male; leg weakness. TECHNIQUE: Multisequence, multiplanar images of the thoracic spine were obtained. COMPARISON: None available. FINDINGS: ALIGNMENT: Normal thoracic kyphosis without significant scoliosis. VERTEBRAE:Grossly normal marrow signal and vertebral body height for age. No significant facet joint disease or osseous foraminal narrowing appreciated. VISUALIZED SPINAL CORD: No significant abnormality. Visualized conus medullaris is grossly normal in appearance. INTERVERTEBRAL DISCS: No significant abnormality. PARASPINAL SOFT TISSUES: No significant abnormality. ADDITIONAL FINDINGS: Small, bilateral pleural effusions noted. IMPRESSION: 1. No focal disc herniation, spinal canal stenosis or nerve root compression. No cause for patient's symptomatology seen. Signer Name: Joel Fermin MD, III Signed: 02/01/2022 12:09 PM Workstation Name: [email or web address] [id number]
--- NOTE | 2022-02-01 13:30 | Magnetic Resonance Report ---
MR cervical spine wo/w con INDICATION / CLINICAL INFORMATION: 41 years Male; leg weakness. TECHNIQUE: Multisequence, multiplanar images of the cervical spine were obtained. Some motion artifact present. COMPARISON: None available. FINDINGS: CRANIOCERVICAL JUNCTION:No significant abnormality. ALIGNMENT: No significant abnormality. VERTEBRAE:Grossly normal marrow signal and vertebral body height for age. VISUALIZED SPINAL CORD: No definitive signs of significant abnormality. INTERVERTEBRAL DISCS: Grossly normal in height and signal intensity. [id number] ANALYSIS: C2-3: Mild foraminal narrowing on the right from uncinate hypertrophy. C3-4: Moderate foraminal narrowing on the left from uncinate and facet hypertrophy. Mild on the right . Findings may affect the C4 nerves. C4-5: Minimal uncinate hypertrophy. C5-6: Moderate foraminal narrowing left from uncinate hypertrophy, which could affect the left C6 ner ve. Mild to moderate on the right. C6-7: Moderate foraminal narrowing bilaterally from uncinate and facet hypertrophy, which may affect the C7 nerves. C7-T1: Moderate foraminal narrowing bilaterally from uncinate facet hypertrophy, which may affect C8 nerves. PARASPINAL SOFT TISSUES: No significant abnormality. ADDITIONAL FINDINGS: I see no signs of abnormal enhancement following contrast administration. Mild to moderate mucosal thickening seen in the paranasal sinuses. IMPRESSION: 1. Degenerative changes of the cervical spine as described above. No definitive cause for patient's leg weakness identified. Signer Name: Joel Fermin MD, III Signed: 02/01/2022 1:25 PM Workstation Name: [email or web address]
--- NOTE | 2022-02-01 13:32 | Magnetic Resonance Report ---
MR lumbar spine wo/w con INDICATION / CLINICAL INFORMATION: 41 years Male; leg weakness and back pain. TECHNIQUE: Multisequence, multiplanar images of the lumbar spine were obtained. COMPARISON: None available. FINDINGS: ALIGNMENT: No significant abnormality. VERTEBRAE:Grossly normal marrow signal and vertebral body height for age. VISUALIZED SPINAL CORD: No significant abnormality. Conus is grossly normal in appearance. INTERVERTEBRAL DISCS: Grossly normal in height and signal intensity. [id number] ANALYSIS: L1-2: Minimal facet hypertrophy. L2-3: Minimal facet hypertrophy. L3-4: Mild disc bulge. Mild facet hypertrophy. Mild foraminal narrowing. L4-5: Mild disc bulge and small right paracentral/subarticular zone disc extrusion, with disc materia l extending to the pedicular level of L5. Mild facet hypertrophy. Mild to moderate foraminal narrowin g bilaterally with encroachment upon L4 nerves. No impingement. L5-S1: Mild to moderate facet hypertrophy. Minimal disc bulge. [id number] foraminal narrowing. There is encroachment upon L5 nerves without impingement. PARASPINAL SOFT TISSUES: No significant abnormality. ADDITIONAL FINDINGS: I see no signs of abnormal enhancement following contrast administration. IMPRESSION: 1. Degenerative changes of the lumbar spine as described above. Most marked findings appear to be at L4-5. Please correlate with dermatomal distribution of patient's symptoms, if present. Signer Name: Joel Fermin MD, III Signed: 02/01/2022 1:28 PM Workstation Name: [id number]
--- NOTE | 2022-02-01 15:09 | History and Physical Report ---
History of Present Illness Chief complaint: My legs are weak History of present illness: 41 YO Male with Nicotine Dependence, HIV on Antiretroviral therapy with Biktarvy, Peripheral Neuropathy presents to ED for evaluation. Patient reports "my legs are weak". Patient states that he has experienced generalized lower extremity numbness and weakness over the past 3 days with persistent and worsening symptoms over the same timeframe. Patient also reports neck pain that runs down his spine. Patient states that neck pain is 8/10, constant, burning in nature without exacerbating or alleviating factors. Patient transported to [facility] via private vehicle for further care and evaluation of the aforementioned symptoms. The patient was seen and evaluated in the emergency department. All lab and imaging studies reviewed. Patient found to have bilateral lower extremity weakness and inability to stand and bear weight to bilateral lower extremities as per patient. Patient found to have clinical symptoms consistent with transverse myelitis, HIV syndrome, malnutrition. Patient mated to medical floor due to increased risk of worsening symptoms. Neurology team consulted in ED. Neurosurgery team consulted in ED. Patient denies fever, chills, chest pain, palpitation, productive cough, skin rash, recent contact, known exposure to COVID-19. No prior admission for review. All medication listed at time of admission has been reconciled. Advanced care planning conducted in ED. Past History Past Medical History: HIV/AIDS Past Surgical History: appendectomy, Other (Lymph node biopsy) Social history: single, smoking Family history: hypertension Medications and Allergies Allergies Allergy/AdvReac Type Severity Reaction Status Date / Time gabapentin Allergy Mild Anaphylaxis Verified 02/01/22 08:10 Sulfa (Sulfonamide Allergy Mild Anaphylaxis Verified 02/01/22 08:09 Antibiotics) Home Medications Medication Instructions Recorded Confirmed Last Taken Type HYDROcodone/APAP 5-325 [[place] 1 each PO Q6HR PRN #10 tablet 08/09/19 Unknown Rx 5/325] Amoxicillin [Trimox CAP] 500 mg PO Q8H #21 capsule 02/09/20 Unknown Rx Ibuprofen [Motrin 800 MG tab] 800 mg PO Q8HR PRN #30 tablet 02/09/20 Unknown Rx Nystas/Diphen/Xyl Visc/Mylanta 15 ml MM Q6H PRN #120 ml 02/09/20 Unknown Rx [Magic Mouthwash] Azithromycin [Zithromax Z-ABELARDO] 250 mg PO DAILY #6 tablet 07/26/20 Unknown Rx Benzonatate [Tessalon Perles] 100 mg PO Q12H PRN #12 capsule 07/26/20 Unknown Rx Ketorolac [Toradol] 10 mg PO Q6H PRN #14 tablet 04/01/21 Unknown Rx Neomy/Polymyx B/Hc (Otic) Soln 4 drops OT TID #1 bottle 04/01/21 Unknown Rx [Cortisporin (Otic) Soln] Active Meds: Active Medications Methylprednisolone Sodium Succinate 1,000 mg/ Sodium Chloride 250 mls @ 250 mls/hr IV ONCE ONE Stop: 02/01/22 16:59 Review of Systems Constitutional: no weight loss, no weight gain, no fever, no chills, no night sweats Ears, nose, mouth and throat: no ear pain, no tinnitis, no nasal discharge Cardiovascular: no chest pain, no palpitations, no syncope Respiratory: no cough, no hemoptysis, no shortness of breath Gastrointestinal: no abdominal pain, no nausea, no diarrhea, no change in bowel habits, no hematemesis Genitourinary Male: no hematuria, no flank pain, no discharge, no urinary frequency, no urinary hesitancy Rectal: no pain, no incontinence, no bleeding Musculoskeletal: neck pain, leg numbness/tingling, no neck stiffness, no arm numbness/tingling Integumentary: no rash, no pruritis, no redness, no sores, no wounds Neurological: no head injury, no paralysis, no parathesias, no numbness, no ting ling, no seizures, no syncope Psychiatric: no anxiety, no change in sleep habits, no sleep disturbances, no insomnia, no hypersomnia, no change in libido, no disorientation Endocrine: no cold intolerance, no heat intolerance, no excessive thirst, no polydipsia, no polyuria, no nocturia Hematologic/Lymphatic: no easy bruising, no easy bleeding, no lymphedema Allergic/Immunologic: no allergic rhinitis, no anaphylaxis Exam - Constitutional Vitals: Temp Pulse Resp BP Pulse Ox 98.6 F 55 L 16 134/78 99 01/31/22 21:38 02/01/22 12:09 02/01/22 12:09 02/01/22 12:09 02/01/22 12:09 General appearance: Present: mild distress, cachectic - EENT Eyes: Present: PERRL ENT: hearing intact, clear oral mucosa - Neck Neck: Present: supple, normal ROM - Respiratory Respiratory effort: normal Respiratory: bilateral: CTA - Cardiovascular Heart Sounds: Present: S1 & S2. Absent: rub, click - Extremities Extremities: pulses symmetrical, No edema Peripheral Pulses: within normal limits - Abdominal General gastrointestinal: Present: soft, non-tender, non-distended, normal bowel sounds Male genitourinary: Present: normal - Integumentary Integumentary: Present: clear, warm, dry - Musculoskeletal Musculoskeletal: strength equal bilaterally, other (Bilateral lower extremity weakness) - Psychiatric Psychiatric: appropriate mood/affect, intact judgment & insight - Neurologic Neurologic: CNII-XII intact, moves all extremities, no gait normal Results - Labs CBC & Chem 7: 02/01/22 02:08 02/01/22 02:08 Labs: Abnormal lab results 01/31/22 02/01/22 02/01/22 Range/Units 21:36 02:08 02:08 WBC 3.7 L (4.5-11.0) K/mm3 Lymphocytes % (Manual) 53.0 H (13.4-35.0) % Seg Neutrophils # Man 1.7 L (1.8-7.7) K/mm3 Glucose 109 H (75-100) mg/dL POC Glucose 127 H (70-105) mg/dL Lactic Acid (0.7-2.0) mmol/L Albumin 3.6 L (3.9-5) g/dL 02/01/22 Range/Units 02:08 WBC (4.5-11.0) K/mm3 Lymphocytes % (Manual) (13.4-35.0) % Seg Neutrophils # Man (1.8-7.7) K/mm3 Glucose (75-100) mg/dL POC Glucose (70-105) mg/dL Lactic Acid 0.60 L (0.7-2.0) mmol/L Albumin (3.9-5) g/dL Assessment and Plan - Patient Problems (1) Transverse myelitis Current Visit: Yes Status: Acute Plan to address problem: Neurosurgery consult, neurology consulted. IV steroid therapy, CT scan head, MRI, HSV PCR, CSF viral titer, lumbar puncture. Further care and evaluation as per neurology team. (2) HIV (human immunodeficiency virus infection) Current Visit: Yes Status: Acute Qualifiers: HIV symptom status: unspecified Qualified Code(s): B20 - Human immunodeficiency virus [HIV] disease Plan to address problem: Continue current therapy, outpatient infectious disease follow-up. (3) Malnutrition Current Visit: Yes Status: Acute Qualifiers: Malnutrition type: protein-calorie malnutrition Protein-calorie malnutrition severity: moderate Qualified Code(s): E44.0 - Moderate protein- calorie malnutrition Plan to address problem: Increase increase protein intake, dietary supplementation. (4) Nicotine dependence Current Visit: Yes Status: Acute Qualifiers: Nicotine product type: cigarettes Substance use status: in withdrawal Qualified Code(s): F17.213 - Nicotine dependence, cigarettes, with withdrawal Plan to address problem: Smoking cessation counseling, supportive care, behavior change counseling, +15 minutes. (5) Lower extremity weakness Current Visit: Yes Status: Acute Plan to address problem: MRI, supportive care. Fall precautions. (6) DVT prophylaxis Current Visit: Yes Status: Acute Plan to address problem: SCD to bilateral lower extremities while in bed (7) Advance care planning Current Visit: Yes Status: Acute Plan to address problem: Disease education conducted, care plan discussed, diagnoses discussed, prognosis discussed, patient is full code. Patient and acknowledged understanding and agreement with care plan, +30 minutes. (8) Preventative health care Current Visit: Yes Status: Acute Plan to address problem: Patient counseled regarding risk factor reduction, follow-up with primary care physician for all age and risk factor appropriate screening tests, smoking cessation. +15 minutes.
[2022-02-01] MEDS ORDERED: HYDROmorphone 1 MG/1 ML INJ IV PRN (15:10)
[2022-02-01] MEDS ORDERED: ACETAMINOPHEN 325 MG TAB PO PRN (15:10)
[2022-02-01] MEDS ORDERED: ONDANSETRON 4 MG/2 ML INJ IV PRN (15:10)
[2022-02-01] MEDS ORDERED: ALBUTEROL 2.5 MG/3 ML NEBU IH PRN (15:10)
[2022-02-01] MEDS ORDERED: IBUPROFEN 800 MG TAB PO PRN (15:31)
[2022-02-01] MEDS ORDERED: BENZONATATE 100 MG CAP PO PRN (15:31)
[2022-02-01] MEDS ORDERED: MAGIC MOUTHWASH 30ML MM PRN (15:31)
[2022-02-01] MEDS ORDERED: KETOROLAC 10 MG TAB PO PRN (15:31)
[2022-02-01] MEDS ORDERED: methylPREDNISolone Sod Suc 1,000 MG in SODIUM CHLORIDE 0.9% 250ML 250 ML IV ONE (16:00)
[2022-02-01] MEDS: SODIUM CHLORIDE 0.9% 1000 ML 1,000 ML IV SCH (17:48)
[2022-02-01] MEDS ORDERED: POLYMYXIN B OT SCH (20:00)
[2022-02-01] MEDS ORDERED: HYDROCORTISONE OT SCH (20:00)
[2022-02-01] MEDS ORDERED: NEOMYCIN OT SCH (20:00)
[2022-02-01] MEDS: oxyCODONE /ACETAMINOPHEN 5-325MG TAB PO PRN (22:57)
[2022-02-01] MEDS: methylPREDNISolone Sod Succinate 40 MG/1 ML INJ IV SCH (22:58)
[2022-02-02 05:10] LABS: Basophils % (Auto) 0.5 % (0.0-1.8); Hematocrit 40.7 % (35.5-45.6); Hemoglobin 13.5 gm/dl (11.8-15.2); Lymphocytes # (Auto) 1.2 K/mm3 (1.2-5.4); Mean Corpuscular HGB Conc 33 % (32-34); Mean Corpuscular Volume 85 fl (84-94); Monocytes # (Auto) 0.1 K/mm3 (0.0-0.8); Monocytes % (Auto) 2.1 % (0.0-7.3); Platelet Count 196 K/mm3 (140-440); Red Blood Count 4.79 M/mm3 (3.65-5.03); Red Cell Distribution Width 13.7 % (13.2-15.2)
[2022-02-02 05:33] LABS: Alanine Aminotransferase 13 units/L (7-56); Albumin 3.6 g/dL (3.9-5); BUN/Creatinine Ratio 16; Blood Urea Nitrogen 16 mg/dL (9-20); Calcium 9.4 mg/dL (8.4-10.2); Hemolysis Index 15
[2022-02-02] MEDS: methylPREDNISolone Sod Succinate 40 MG/1 ML INJ IV SCH ×3 (05:35→21:08)
[2022-02-02] MEDS: oxyCODONE /ACETAMINOPHEN 5-325MG TAB PO PRN ×2 (08:26→19:43)
--- NOTE | 2022-02-02 08:47 | Consultation ---
History of Present Illness Consult date: 02/02/22 Reason for Consult: Bilateral Lower extremities weakness,HIV History of present illness: My legs are weak History of present illness: 41 YO Male with Nicotine Dependence, HIV on Antiretroviral therapy with Biktarvy, Peripheral Neuropathy presents to ED for evaluation. Patient reports "my legs are weak". Patient states that he has experienced generalized lower extremity numbness and weakness over the past 3 days with persistent and worsening symptoms over the same timeframe. Patient also reports neck pain that runs down his spine. Patient states that neck pain is 8/10, constant, burning in nature without exacerbating or alleviating factors. Patient transported to [facility] via private vehicle for further care and evaluation of the aforementioned symptoms. The patient was seen and evaluated in the emergency department. All lab and imaging studies reviewed. Patient found to have bilateral lower extremity weakness and inability to stand and bear weight to bilateral lower extremities as per patient. Patient found to have clinical symptoms consistent with transverse myelitis, HIV syndrome, malnutrition. Patient mated to medical floor due to increased risk of worsening symptoms. Neurology team consulted in ED. Neurosurgery team consulted in ED. Patient denies fever, chills, chest pain, palpitation, productive cough, skin rash, recent contact, known exposure to COVID-19. No prior admission for review. All medication listed at time of admission has been reconciled. Advanced care planning conducted in ED. In ER pt. had extensive work up including CT brain/xry neck MRI with gd to brain ,Cervical dorsal and lumber all remarkable for mild degenerative disc disease in cervical and lumber with no enhancment , no sign of demylinating disease. he denied rash , he is with lack of sensation from umbilical area down, denied urinary retention , Past History Past Medical History: HIV/AIDS Past Surgical History: appendectomy, Other (Lymph node biopsy) Social history: single, smoking Family history: hypertension Medications and Allergies Allergies Allergy/AdvReac Type Severity Reaction Status Date / Time gabapentin Allergy Mild Anaphylaxis Verified 02/01/22 08:10 Sulfa (Sulfonamide Allergy Mild Anaphylaxis Verified 02/01/22 08:09 Antibiotics) Home Medications Medication Instructions Recorded Confirmed Last Taken Type HYDROcodone/APAP 5-325 [[place] 1 each PO Q6HR PRN #10 tablet 08/09/19 Unknown Rx 5/325] Amoxicillin [Trimox CAP] 500 mg PO Q8H #21 capsule 02/09/20 Unknown Rx Ibuprofen [Motrin 800 MG tab] 800 mg PO Q8HR PRN #30 tablet 02/09/20 Unknown Rx Nystas/Diphen/Xyl Visc/Mylanta 15 ml MM Q6H PRN #120 ml 02/09/20 Unknown Rx [Magic Mouthwash] Azithromycin [Zithromax Z-ABELARDO] 250 mg PO DAILY #6 tablet 07/26/20 Unknown Rx Benzonatate [Tessalon Perles] 100 mg PO Q12H PRN #12 capsule 07/26/20 Unknown Rx Ketorolac [Toradol] 10 mg PO Q6H PRN #14 tablet 04/01/21 Unknown Rx Neomy/Polymyx B/Hc (Otic) Soln 4 drops OT TID #1 bottle 04/01/21 Unknown Rx [Cortisporin (Otic) Soln] Active Meds: Active Medications Methylprednisolone Sodium Succinate 1,000 mg/ Sodium Chloride 250 mls @ 250 mls/hr IV ONCE ONE Stop: 02/01/22 16:59 Review of Systems Constitutional: no weight loss, no weight gain, no fever, no chills, no night sweats Ears, nose, mouth and throat: no ear pain, no tinnitis, no nasal discharge Cardiovascular: no chest pain, no palpitations, no syncope Respiratory: no cough, no hemoptysis, no shortness of breath Gastrointestinal: no abdominal pain, no nausea, no diarrhea, no change in bowel habits, no hematemesis Genitourinary Male: no hematuria, no flank pain, no discharge, no urinary frequency, no urinary hesitancy Rectal: no pain, no incontinence, no bleeding Musculoskeletal: neck pain, leg numbness/tingling, no neck stiffness, no arm numbness/tingling Integumentary: no rash, no pruritis, no redness, no sores, no wounds Neurological: no head injury, no paralysis, no parathesias, no numbness, no tingling, no seizures, no syncope Psychiatric: no anxiety, no change in sleep habits, no sleep disturbances, no insomnia, no hypersomnia, no change in libido, no disorientation Endocrine: no cold intolerance, no heat intolerance, no excessive thirst, no polydipsia, no polyuria, no nocturia Hematologic/Lymphatic: no easy bruising, no easy bleeding, no lymphedema Allergic/Immunologic: no allergic rhinitis, no anaphylaxis Past History Past Medical History: HIV/AIDS Past Surgical History: appendectomy, Other (Lymph node biopsy) Social history: single, smoking Family history: hypertension Medications and Allergies Allergies Allergy/AdvReac Type Severity Reaction Status Date / Time gabapentin Allergy Mild Anaphylaxis Verified 02/01/22 08:10 Sulfa (Sulfonamide Allergy Mild Anaphylaxis Verified 02/01/22 08:09 Antibiotics) Home Medications Medication Instructions Recorded Confirmed Last Taken Type HYDROcodone/APAP 5-325 [[place] 1 each PO Q6HR PRN #10 tablet 08/09/19 Unknown Rx 5/325] Amoxicillin [Trimox CAP] 500 mg PO Q8H #21 capsule 02/09/20 Unknown Rx Ibuprofen [Motrin 800 MG tab] 800 mg PO Q8HR PRN #30 tablet 02/09/20 Unknown Rx Nystas/Diphen/Xyl Visc/Mylanta 15 ml MM Q6H PRN #120 ml 02/09/20 Unknown Rx [Magic Mouthwash] Azithromycin [Zithromax Z-ABELARDO] 250 mg PO DAILY #6 tablet 07/26/20 Unknown Rx Benzonatate [Tessalon Perles] 100 mg PO Q12H PRN #12 capsule 07/26/20 Unknown Rx Ketorolac [Toradol] 10 mg PO Q6H PRN #14 tablet 04/01/21 Unknown Rx Neomy/Polymyx B/Hc (Otic) Soln 4 drops OT TID #1 bottle 04/01/21 Unknown Rx [Cortisporin (Otic) Soln] Active Meds: Active Medications Acetaminophen (Acetaminophen 325 Mg Tab) 650 mg PO Q4H PRN PRN Reason: Pain MILD(1-3)/Fever >100.5/BARRETT Albuterol (Albuterol 2.5 Mg/3 Ml Nebu) 2.5 mg IH Q4HRT PRN PRN Reason: Shortness Of Breath Azithromycin (Azithromycin 250 Mg Tab) 250 mg PO DAILY VJ; Protocol Benzonatate (Benzonatate 100 Mg Cap) 100 mg PO Q12H PRN PRN Reason: Cough Hydromorphone HCl (Hydromorphone 1 Mg/1 Ml Inj) 0.5 mg IV Q8H PRN PRN Reason: Pain , Severe (7-10) Last Admin: 02/01/22 17:45 Dose: 0.5 mg Sodium Chloride (Nacl 0.9% 1000 Ml) 1,000 mls @ 42 mls/hr IV DIRECT VJ Last Admin: 02/01/22 17:48 Dose: 42 mls/hr Methylprednisolone Sodium Succinate (Methylprednisolone Sod Succinate 40 Mg/1 Ml Inj) 40 mg IV Q8HR [facility] Last Admin: 02/02/22 05:35 Dose: 40 mg Ondansetron HCl (Ondansetron 4 Mg/2 Ml Inj) 4 mg IV Q8H PRN PRN Reason: Nausea And Vomiting Last Admin: 02/01/22 19:30 Dose: 4 mg Oxycodone/Acetaminophen (Oxycodone /Acetaminophen 5-325mg Tab) 1 tab PO Q6H PRN PRN Reason: Pain, Moderate (4-6) Last Admin: 02/02/22 08:26 Dose: 1 tab Sodium Chloride (Sodium Chloride 0.9% 10 Ml Flush Syringe) 10 ml IV BID [facility] Last Admin: 02/01/22 22:58 Dose: 10 ml Sodium Chloride (Sodium Chloride 0.9% 10 Ml Flush Syringe) 10 ml IV PRN PRN PRN Reason: LINE FLUSH Physical Examination - Vital Signs Vital Signs: Vital Signs Temp Pulse Resp BP Pulse Ox 98.6 F 74 18 148/102 98 01/31/22 21:38 01/31/22 21:38 01/31/22 21:38 01/31/22 21:38 01/31/22 21:38 - Constitutional General appearance: uncomfortable - EENT EENT: Present: PERRL, mucous membranes moist - Respiratory Respiratory: Present: lungs clear, rhonchi - Cardiovascular Cardiovascular: Present: regular rate, normal S1, normal S2 Extremities: Present: no peripheral edema bilatateraly, no clubbing, cyanosis - Gastrointestinal Gastrointestinal: Present: normoactive bowel sounds - Integumentary Integumentary: Present: normal - Neurologic Cranial nerve examination: PERRL, EOMI, intact Speech examination: intact Sensorimotor examination: other (decrease sensation to position and pin sensation from T6 down ) Detailed motor examination: other (weakness lower 1/5 ,upper 4/5 planter is down slight clonus lower and reflexes2+ at knees bilateral , unable to walk , Lehrmit sign is positive) Results - Laboratory Findings CBC and BMP: 02/02/22 04:19 02/02/22 04:19 Abnormal Lab Findings: Abnormal Labs 01/31/22 02/01/22 02/01/22 21:36 02:08 02:08 WBC 3.7 L Seg Neutrophils % Lymphocytes % (Manual) 53.0 H Seg Neutrophils # Man 1.7 L Glucose 109 H POC Glucose 127 H Lactic Acid Albumin 3.6 L 02/01/22 02/02/22 02/02/22 02:08 04:19 04:19 WBC Seg Neutrophils % 75.4 H Lymphocytes % (Manual) Seg Neutrophils # Man Glucose 138 H POC Glucose Lactic Acid 0.60 L Albumin 3.6 L Assessment and Plan Assessment and Plan 41 YO Male with Nicotine Dependence, HIV on Antiretroviral therapy with Biktarvy, Peripheral Neuropathy presents to ED for evaluation. Patient reports "my legs are weak". Patient states that he has experienced generalized lower extremity numbness and weakness over the past 3 days with persistent and worsening symptoms over the same timeframe. Patient also reports neck pain that runs down his spine. Patient states that neck pain is 8/10, constant, burning in nature without exacerbating or alleviating factors. Patient transported to [facility] via private vehicle for further care and evaluation of the aforementioned symptoms. The patient was seen and evaluated in the emergency department. - Patient Problems # Progressive weakness lower extremities over the last 3 days with associated T6 level decrease sensation -R/O Transverse myelitis - MRI brain ,Neck and dorsal and lumber are remarkable for mild degenerative changes , no enhancment is noted in brain or spine -LP is done remarkable for 30wbs ,protein elevated with normal Glu.-- C/s negative , cryptococcal ag negative - Positive lhermit sign -no blured vision or diplopia -suggest add ESR,MAYA,B12 -Serum AQP4 IgG ab -Serum MOG IgG Abs -SSA/SSB -CSF Oligoclonal band,IGG -HSV titer -Solmedrol 100 mg Iv daily X 3 days -If not better consider Immunoglobulin treatment IGG Iv daily for 5 days and or consider transfer. no neurology service over next week is available - Moniter urine output and consider catheter placment -PT evaluate #) HIV (human immunodeficiency virus infection) -Continue current therapy, outpatient infectious disease follow-up. # Malnutrition -Increase increase protein intake, dietary supplementation. # Nicotine dependence -Smoking cessation counseling, supportive care, behavior change counseling, +15 minutes. # Lower extremity weakness - related to above # DVT prophylaxis SCD to bilateral lower extremities while in bed or sq heparine will follow as needed
[2022-02-02] MEDS: AZITHROMYCIN 250 MG TAB PO SCH (10:09)
[2022-02-02] MEDS: CYCLOBENZAPRINE 10 MG TAB PO SCH ×2 (14:35→19:44)
--- NOTE | 2022-02-02 15:28 | Progress Note ---
Assessment and Plan 41 YO Male with Nicotine Dependence, HIV on Antiretroviral therapy with Biktarvy, Peripheral Neuropathy presents to ED for lower extremity weakness. In ER pt. had extensive work up including CT brain/xry neck, MRI with gd to brain ,Cervical dorsal and lumber all remarkable for mild degenerative disc disease in cervical and lumber with no enhancment , no sign of demylinating disease. patient admitted for further evaluation and management. Assessment and plan: -- Transverse myelitis with lower extremity weakness Current Visit: Yes Status: Acute Plan to address problem: Neurology consulted. IV steroid therapy, CT scan head, MRI, HSV PCR, CSF viral titer, lumbar puncture. Further care and evaluation as per neurology team. -- HIV (human immunodeficiency virus infection) Current Visit: Yes Status: Acute Qualifiers: HIV symptom status: unspecified Qualified Code(s): B20 - Human immunodeficiency virus [HIV] disease Plan to address problem: Continue current therapy, outpatient infectious disease follow-up. -- Nicotine dependence Current Visit: Yes Status: Acute Qualifiers: Nicotine product type: cigarettes Substance use status: in withdrawal Qualified Code(s): F17.213 - Nicotine dependence, cigarettes, with withdrawal Plan to address problem: Smoking cessation counseling, supportive care, behavior change counseling, +15 minutes. -- DVT prophylaxis Current Visit: Yes Status: Acute Plan to address problem: SCD to bilateral lower extremities while in bed -- Advance care planning Current Visit: Yes Status: Acute Plan to address problem: Disease education conducted, care plan discussed, diagnoses discussed, prognosis discussed, patient is full code. Patient and acknowledged understanding and agreement with care plan, +30 minutes. -- Preventative health care Current Visit: Yes Status: Acute Plan to address problem: Patient counseled regarding risk factor reduction, follow-up with primary care physician for all age and risk factor appropriate screening tests, smoking cessation. +15 minutes. Daily clinical course: 02/03: cont iv steroid, follow clinically. Patient admits to weeks of flulike symptoms before developing back pain and lower extremity weakness. If symptoms does not improve in 48 to 72 hours patient may need to be transferred to [facility] as we do not have neurological for possible IVIG transfusion. We will monitor urine output, will place catheter as needed. Subjective Date of service: 02/02/22 Interval history: Patient seen and examined. Medical records and medication list reviewed. No acute event overnight noted by the RN. Patient denies any chest pain or difficulty breathing. Patient is tolerating diet. Discussed plan of care at bedside with patient. Continue to complains of back pain and bilateral lower extremity weakness Objective - Exam Narrative Exam: - Constitutional General appearance: uncomfortable - EENT EENT: Present: PERRL, mucous membranes moist - Respiratory Respiratory: Present: lungs clear, rhonchi - Cardiovascular Cardiovascular: Present: regular rate, normal S1, normal S2 Extremities: Present: no peripheral edema bilatateraly, no clubbing, cyanosis - Gastrointestinal Gastrointestinal: Present: normoactive bowel sounds - Integumentary Integumentary: Present: normal - Neurologic Cranial nerve examination: PERRL, EOMI, intact Speech examination: intact Sensorimotor examination: other (decrease sensation to position and pin sensation from T6 down ) Detailed motor examination: other (weakness lower 1/5 ,upper 4/5 planter is down slight clonus lower and reflexes2+ at knees bilateral , unable to walk ) - Constitutional Vitals: Vital Signs - 12hr 02/02/22 02/02/22 02/02/22 05:00 08:12 10:00 Temperature 97.8 F Pulse Rate 60 Respiratory 18 Rate Blood Pressure Blood Pressure 131/68 [Left] O2 Sat by Pulse 96 94 99 Oximetry 02/02/22 11:12 Temperature 97.7 F Pulse Rate 78 Respiratory 22 Rate Blood Pressure 125/70 Blood Pressure [Left] O2 Sat by Pulse 93 Oximetry - Labs CBC & Chem 7: 02/02/22 04:19 02/02/22 04:19 Labs: Abnormal lab results 02/02/22 02/02/22 Range/Units 04:19 04:19 Seg Neutrophils % 75.4 H (40.0-70.0) % Glucose 138 H (75-100) mg/dL Albumin 3.6 L (3.9-5) g/dL
[2022-02-02] MEDS: SODIUM CHLORIDE 0.9% 1000 ML 1,000 ML IV SCH (21:21)
[2022-02-03] MEDS: methylPREDNISolone Sod Succinate 40 MG/1 ML INJ IV SCH (05:04)
[2022-02-03] MEDS: CYCLOBENZAPRINE 10 MG TAB PO SCH ×3 (08:00→20:08)
[2022-02-03] MEDS: AZITHROMYCIN 250 MG TAB PO SCH (09:11)
[2022-02-03] MEDS: oxyCODONE /ACETAMINOPHEN 5-325MG TAB PO PRN ×2 (09:12→20:09)
[2022-02-03] MEDS: methylPREDNISolone Sod Suc 1,000 MG in SODIUM CHLORIDE 0.9% 250ML 250 ML IV SCH (11:17)
--- NOTE | 2022-02-03 14:11 | Progress Note ---
Assessment and Plan 41 YO Male with Nicotine Dependence, HIV on Antiretroviral therapy with Biktarvy, Peripheral Neuropathy presents to ED for lower extremity weakness. In ER pt. had extensive work up including CT brain/xry neck, MRI with gd to brain ,Cervical dorsal and lumber all remarkable for mild degenerative disc disease in cervical and lumber with no enhancment , no sign of demylinating disease. patient admitted for further evaluation and management. Assessment and plan: -- Transverse myelitis with lower extremity weakness Current Visit: Yes Status: Acute Plan to address problem: Neurology consulted. Continue IV steroid therapy for total 72 hours, Ordered CT scan head, MRI, HSV PCR, CSF viral titer, lumbar puncture. Further care and evaluation as per neurology team. -- HIV (human immunodeficiency virus infection) Current Visit: Yes Status: Acute Qualifiers: HIV symptom status: unspecified Qualified Code(s): B20 - Human immunodeficiency virus [HIV] disease Plan to address problem: Continue current therapy, outpatient infectious disease follow-up. -- Nicotine dependence Current Visit: Yes Status: Acute Qualifiers: Nicotine product type: cigarettes Substance use status: in withdrawal Qualified Code(s): F17.213 - Nicotine dependence, cigarettes, with withdrawal Plan to address problem: Smoking cessation counseling, supportive care, behavior change counseling, +15 minutes. -- DVT prophylaxis Current Visit: Yes Status: Acute Plan to address problem: SCD to bilateral lower extremities while in bed -- Advance care planning Current Visit: Yes Status: Acute Plan to address problem: Disease education conducted, care plan discussed, diagnoses discussed, prognosis discussed, patient is full code. Patient and acknowledged understanding and agreement with care plan, +30 minutes. -- Preventative health care Current Visit: Yes Status: Acute Plan to address problem: Patient counseled regarding risk factor reduction, follow-up with primary care physician for all age and risk factor appropriate screening tests, smoking cessation. +15 minutes. Daily clinical course: 02/02: cont iv steroid, follow clinically. Patient admits to weeks of flulike symptoms before developing back pain and lower extremity weakness. If symptoms does not improve in 72 hours patient may need to be transferred to [facility] as we do not have neurological for possible IVIG transfusion. We will monitor urine output, will place catheter as needed. 02/03: Continue IV Solu-Medrol 1 g daily for total 3 days. Discussed with neurology by phone today and recommended to continue high-dose of steroid until tomorrow. If no symptomatic improvement or symptoms continue to get worse patient would need IVIG therapy for at least for 5 days. If we do not have neurology service at the level then patient may need to transfer to [facility]. Continue to follow clinically, follow-up pending lab orders. Subjective Date of service: 02/03/22 Interval history: Patient seen and examined. Medical records and medication list reviewed. No acute event overnight noted by the RN. Patient denies any chest pain or difficulty breathing. Patient is tolerating diet. Discussed plan of care at bedside with patient and his at the bedside. Continue to complains of back pain and bilateral lower extremity weakness, Denies any stool or urinary incontinence or retention Objective - Exam Narrative Exam: - Constitutional General appearance: uncomfortable - EENT EENT: Present: PERRL, mucous membranes moist - Respiratory Respiratory: Present: lungs clear, rhonchi - Cardiovascular Cardiovascular: Present: regular rate, normal S1, normal S2 Extremities: Present: no peripheral edema bilatateraly, no clubbing, cyanosis - Gastrointestinal Gastrointestinal: Present: normoactive bowel sounds - Integumentary Integumentary: Present: normal - Neurologic Cranial nerve examination: PERRL, EOMI, intact Speech examination: intact Sensorimotor examination: other (decrease sensation to position and pin sensation from T6 down ) Detailed motor examination: other (weakness lower 1/5 ,upper 4/5 planter is down slight clonus lower and reflexes2+ at knees bilateral , unable to walk ) - Constitutional Vitals: Vital Signs - 12hr 02/03/22 02/03/22 02/03/22 06:00 08:00 10:00 Temperature 97.8 F Pulse Rate 57 L Respiratory 18 Rate Blood Pressure 127/78 O2 Sat by Pulse 93 95 97 Oximetry 02/03/22 11:22 Temperature 97.7 F Pulse Rate 61 Respiratory 18 Rate Blood Pressure 132/81 O2 Sat by Pulse 94 Oximetry - Labs CBC & Chem 7: 02/02/22 04:19 02/02/22 04:19
[2022-02-03] MEDS ORDERED: NON-FORMULARY EACH (Bictegrav/Emtricit/Tenofov Ala 1 EACH Tablet) PO SCH (14:30)
[2022-02-03] MEDS: EMTRICITABINE 200 MG CAP PO SCH (16:33)
[2022-02-03] MEDS: TENOFOVIR 300 MG TAB PO SCH (16:33)
[2022-02-03] MEDS: DOLUTEGRAVIR 50 MG TAB PO SCH (16:33)
[2022-02-03] MEDS: SODIUM CHLORIDE 0.9% 1000 ML 1,000 ML IV SCH (23:25)
[2022-02-04] MEDS: oxyCODONE /ACETAMINOPHEN 5-325MG TAB PO PRN ×3 (03:52→16:46)
[2022-02-04 05:02] LABS: Hematocrit 39.2 % (35.5-45.6); Hemoglobin 12.8 gm/dl (11.8-15.2); Mean Corpuscular HGB Conc 33 % (32-34); Mean Corpuscular Volume 87 fl (84-94); Platelet Count 206 K/mm3 (140-440)
[2022-02-04 05:09] LABS: BUN/Creatinine Ratio 20; Blood Urea Nitrogen 16 mg/dL (9-20); Calcium 8.6 mg/dL (8.4-10.2); Hemolysis Index 19
[2022-02-04 07:43] LABS: Band Neutrophils # (Manual) 0.2 K/mm3; Basophils % (Manual) 0 % (0.0-1.8); Eosinophils % (Manual) 0 % (0.0-4.3); Total Cells Counted 100
[2022-02-04 07:44] LABS: Platelet Estimate Consistent w Auto; RBC Morphology Normal
[2022-02-04] MEDS: EMTRICITABINE 200 MG CAP PO SCH (09:17)
[2022-02-04] MEDS: CYCLOBENZAPRINE 10 MG TAB PO SCH ×3 (09:17→21:28)
[2022-02-04] MEDS: TENOFOVIR 300 MG TAB PO SCH (09:17)
[2022-02-04] MEDS: DOLUTEGRAVIR 50 MG TAB PO SCH (09:17)
[2022-02-04] MEDS: methylPREDNISolone Sod Suc 1,000 MG in SODIUM CHLORIDE 0.9% 250ML 250 ML IV SCH (12:45)
[2022-02-04] MEDS: SODIUM CHLORIDE 0.9% 1000 ML 1,000 ML IV SCH (12:45)
--- NOTE | 2022-02-04 18:18 | Progress Note ---
Assessment and Plan Assessment and plan: 41 YO Male with Nicotine Dependence, HIV on Antiretroviral therapy with Biktarvy, Peripheral Neuropathy presents to ED for lower extremity weakness. In ER pt. had extensive work up including CT brain/xry neck, MRI with gd to brain ,Cervical dorsal and lumber all remarkable for mild degenerative disc dise ase in cervical and lumber with no enhancment , no sign of demylinating disease. patient admitted for further evaluation and management. Assessment and plan: -- Transverse myelitis with lower extremity weakness Neurology Dr. Garcia evaluated the patient, advised to continue high-dose IV steroid therapy for total 72 hours, Ordered CT scan head, MRI, HSV PCR, CSF viral titer, lumbar puncture. Further care and evaluation as per neurology team. -- HIV (human immunodeficiency virus infection) Continue current therapy, outpatient infectious disease follow-up. -- Nicotine dependence Smoking cessation counseling, supportive care, behavior change counseling, +15 minutes. -- DVT prophylaxis SCD to bilateral lower extremities while in bed -- Advance care planning Disease education conducted, care plan discussed, diagnoses discussed, prognosis discussed, patient is full code. Patient and acknowledged understanding and agreement with care plan, +30 minutes. -- Preventative health care Patient counseled regarding risk factor reduction, follow-up with primary care physician for all age and risk factor appropriate screening tests, smoking cessation. +15 minutes. Daily clinical course: 02/02: cont iv steroid, follow clinically. Patient admits to weeks of flulike symptoms before developing back pain and lower extremity weakness. If symptoms does not improve in 72 hours patient may need to be transferred to [facility] as we do not have neurological for possible IVIG transfusion. We will monitor urine output, will place catheter as needed. 02/03: Continue IV Solu-Medrol 1 g daily for total 3 days. Discussed with neurology by phone today and recommended to continue high-dose of steroid until tomorrow. If no symptomatic improvement or symptoms continue to get worse p atient would need IVIG therapy for at least for 5 days. If we do not have neurology service at the level then patient may need to transfer to [facility]. Continue to follow clinically, follow-up pending lab orders. 02/04; patient is on high-dose steroids, consulted on-call neurologist for possible IVIG therapy Patient's condition, consultants recommendations and treatment plan discussed in detail with the patient, and family members over patient's speaker phone. Follow pending CSF analysis reports, consulted on-call telemetry neurologist Dr. Hamm History Interval history: I have seen and examined the patient at the bedside Patient's chart and medications reviewed Patient complains of generalized weakness of right side of the body Neurology evaluated the patient Possible transverse myelitis. On high-dose steroids Vital signs noted Hospitalist Physical - Constitutional Vitals: Temp Pulse Resp BP Pulse Ox 98.6 F 66 18 159/99 97 02/04/22 16:26 02/04/22 16:26 02/04/22 16:46 02/04/22 16:26 02/04/22 16:26 General appearance: Present: mild distress, cachectic - EENT Eyes: Present: PERRL, EOM intact - Neck Neck: Present: supple, normal ROM - Respiratory Respiratory effort: normal Respiratory: bilateral: diminished, negative: rales, rhonchi, wheezing - Cardiovascular Rhythm: regular Heart Sounds: Present: S1 & S2 - Extremities Extremities: no ischemia, No edema - Abdominal General gastrointestinal: soft, non-tender, non-distended, normal bowel sounds - Integumentary Integumentary: Present: clear, warm - Psychiatric Psychiatric: appropriate mood/affect, cooperative - Neurologic Neurologic: CNII-XII intact, moves all extremities Results - Labs CBC & Chem 7: 02/04/22 04:24 02/04/22 04:24 Labs: Laboratory Last Values WBC 17.4 K/mm3 (4.5-11.0) H 02/04/22 04:24 RBC 4.50 M/mm3 (3.65-5.03) 02/04/22 04:24 Hgb 12.8 gm/dl (11.8-15.2) 02/04/22 04:24 Hct 39.2 % (35.5-45.6) 02/04/22 04:24 MCV 87 fl (84-94) 02/04/22 04:24 MCH 28 pg (28-32) 02/04/22 04:24 MCHC 33 % (32-34) 02/04/22 04:24 RDW 14.0 % (13.2-15.2) 02/04/22 04:24 Plt Count 206 K/mm3 (140-440) 02/04/22 04:24 Lymph % (Auto) 22.0 % (13.4-35.0) 02/02/22 04:19 [place] % (Auto) 2.1 % (0.0-7.3) 02/02/22 04:19 Eos % (Auto) 0.0 % (0.0-4.3) 02/02/22 04:19 Baso % (Auto) 0.5 % (0.0-1.8) 02/02/22 04:19 Lymph # (Auto) 1.2 K/mm3 (1.2-5.4) 02/02/22 04:19 [place] # (Auto) 0.1 K/mm3 (0.0-0.8) 02/02/22 04:19 Eos # (Auto) 0.0 K/mm3 (0.0-0.4) 02/02/22 04:19 Baso # (Auto) 0.0 K/mm3 (0.0-0.1) 02/02/22 04:19 Add Manual Diff Complete 02/04/22 04:24 Total Counted 100 02/04/22 04:24 Seg Neutrophils % 75.4 % (40.0-70.0) H 02/02/22 04:19 Seg Neuts % (Manual) 86.0 % (40.0-70.0) H 02/04/22 04:24 Band Neutrophils % 1.0 % 02/04/22 04:24 Lymphocytes % (Manual) 7.0 % (13.4-35.0) L 02/04/22 04:24 Reactive Lymphs % (Man) 0 % 02/04/22 04:24 Monocytes % (Manual) 6.0 % (0.0-7.3) 02/04/22 04:24 Eosinophils % (Manual) 0 % (0.0-4.3) 02/04/22 04:24 Basophils % (Manual) 0 % (0.0-1.8) 02/04/22 04:24 Metamyelocytes % 0 % 02/04/22 04:24 Myelocytes % 0 % 02/04/22 04:24 Promyelocytes % 0 % 02/04/22 04:24 Blast Cells % 0 % 02/04/22 04:24 Nucleated RBC % Not Reportable 02/04/22 04:24 Seg Neutrophils # 4.0 K/mm3 (1.8-7.7) 02/02/22 04:19 Seg Neutrophils # Man 15.0 K/mm3 (1.8-7.7) H 02/04/22 04:24 Band Neutrophils # 0.2 K/mm3 02/04/22 04:24 Lymphocytes # (Manual) 1.2 K/mm3 (1.2-5.4) 02/04/22 04:24 Abs React Lymphs (Man) 0.0 K/mm3 02/04/22 04:24 Monocytes # (Manual) 1.0 K/mm3 (0.0-0.8) H 02/04/22 04:24 Eosinophils # (Manual) 0.0 K/mm3 (0.0-0.4) 02/04/22 04:24 Basophils # (Manual) 0.0 K/mm3 (0.0-0.1) 02/04/22 04:24 Metamyelocytes # 0.0 K/mm3 02/04/22 04:24 Myelocytes # 0.0 K/mm3 02/04/22 04:24 Promyelocytes # 0.0 K/mm3 02/04/22 04:24 Blast Cells # 0.0 K/mm3 02/04/22 04:24 WBC Morphology Not Reportable 02/04/22 04:24 Hypersegmented Neuts Not Reportable 02/04/22 04:24 Hyposegmented Neuts Not Reportable 02/04/22 04:24 Hypogranular Neuts Not Reportable 02/04/22 04:24 Smudge Cells Not Reportable 02/04/22 04:24 Toxic Granulation Not Reportable 02/04/22 04:24 Toxic Vacuolation Not Reportable 02/04/22 04:24 Dohle Bodies Not Reportable 02/04/22 04:24 Pelger-Huet Anomaly Not Reportable 02/04/22 04:24 Junior Rods Not Reportable 02/04/22 04:24 Platelet Estimate Consistent w auto 02/04/22 04:24 Clumped Platelets Not Reportable 02/04/22 04:24 Plt Clumps, EDTA Not Reportable 02/04/22 04:24 Large Platelets Not Reportable 02/04/22 04:24 Giant Platelets Not Reportable 02/04/22 04:24 Platelet Satelliting Not Reportable 02/04/22 04:24 Plt Morphology Comment Not Reportable 02/04/22 04:24 RBC Morphology Normal 02/04/22 04:24 Dimorphic RBCs Not Reportable 02/04/22 04:24 Polychromasia Not Reportable 02/04/22 04:24 Hypochromasia Not Reportable 02/04/22 04:24 Poikilocytosis Not Reportable 02/04/22 04:24 Anisocytosis Not Reportable 02/04/22 04:24 Microcytosis Not Reportable 02/04/22 04:24 Macrocytosis Not Reportable 02/04/22 04:24 Spherocytes Not Reportable 02/04/22 04:24 Pappenheimer Bodies Not Reportable 02/04/22 04:24 Sickle Cells Not Reportable 02/04/22 04:24 Target Cells Not Reportable 02/04/22 04:24 Tear Drop Cells Not Reportable 02/04/22 04:24 Ovalocytes Not Reportable 02/04/22 04:24 Helmet Cells Not Reportable 02/04/22 04:24 [place] Bodies Not Reportable 02/04/22 04:[address] Rings Not Reportable 02/04/22 04:24 [place] Cells Not Reportable 02/04/22 04:24 Bite Cells Not Reportable 02/04/22 04:24 Crenated Cell Not Reportable 02/04/22 04:24 Elliptocytes Not Reportable 02/04/22 04:24 Acanthocytes (Spur) Not Reportable 02/04/22 04:24 Rouleaux Not Reportable 02/04/22 04:24 Hemoglobin C Crystals Not Reportable 02/04/22 04:24 Schistocytes Not Reportable 02/04/22 04:24 Malaria parasites Not Reportable 02/04/22 04:24 ESR 24 mm/Hr (0-20) 02/02/22 13:02 Itmiaz Bodies Not Reportable 02/04/22 04:24 Hem Pathologist Commnt No 02/04/22 04:24 PT 12.7 Sec. (12.2-14.9) 02/01/22 02:08 INR 0.87 (0.87-1.13) 02/01/22 02:08 Sodium 143 mmol/L (137-145) 02/04/22 04:24 Potassium 4.0 mmol/L (3.6-5.0) 02/04/22 04:24 Chloride 109.8 mmol/L (98-107) H 02/04/22 04:24 Carbon Dioxide 24 mmol/L (22-30) 02/04/22 04:24 Anion Gap 13 mmol/L 02/04/22 04:24 BUN 16 mg/dL (9-20) 02/04/22 04:24 Creatinine 0.8 mg/dL (0.8-1.3) 02/04/22 04:24 Estimated GFR > 60 ml/min 02/04/22 04:24 BUN/Creatinine Ratio 20 % 02/04/22 04:24 Glucose 143 mg/dL (75-100) H 02/04/22 04:24 POC Glucose 127 mg/dL (70-105) H 01/31/22 21:36 Lactic Acid 0.60 mmol/L (0.7-2.0) L 02/01/22 02:08 Calcium 8.6 mg/dL (8.4-10.2) 02/04/22 04:24 Total Bilirubin 0.20 mg/dL (0.1-1.2) 02/02/22 04:19 AST 24 units/L (5-40) 02/02/22 04:19 ALT 13 units/L (7-56) 02/02/22 04:19 Alkaline Phosphatase 85 units/L (35-129) 02/02/22 04:19 C-Reactive Protein 1.00 mg/dL (0.00-1.30) 02/01/22 02:08 Total Protein 7.1 g/dL (6.3-8.2) 02/02/22 04:19 Albumin 3.6 g/dL (3.9-5) L 02/02/22 04:19 Albumin/Globulin Ratio 1.0 % 02/02/22 04:19 Vitamin B12 331.5 pg/mL (211-911) 02/02/22 13:02 Urine Color Straw (Yellow) 02/01/22 Unknown Urine Turbidity Clear (Clear) 02/01/22 Unknown Urine pH 7.0 (5.0-7.0) 02/01/22 Unknown Ur Specific [place] 1.009 (1.003-1.030) 02/01/22 Unknown Urine Protein <15 mg/dl mg/dL (Negative) 02/01/22 Unknown Urine Glucose (UA) Neg mg/dL (Negative) 02/01/22 Unknown Urine Ketones Neg mg/dL (Negative) 02/01/22 Unknown Urine Blood Neg (Negative) 02/01/22 Unknown Urine Nitrite Neg (Negative) 02/01/22 Unknown Urine Bilirubin Neg (Negative) 02/01/22 Unknown Urine Urobilinogen < 2.0 mg/dL (<2.0) 02/01/22 Unknown Ur Leukocyte Esterase Neg (Negative) 02/01/22 Unknown Urine WBC (Auto) < 1.0 /HPF (0.0-6.0) 02/01/22 Unknown Urine RBC (Auto) < 1.0 /HPF (0.0-6.0) 02/01/22 Unknown Urine Mucus Few /HPF 02/01/22 Unknown CSF Appearance Clear 02/01/22 04:22 CSF Color Colorless 02/01/22 04:22 CSF WBC 31 /mm3 (1-10) 02/01/22 04:22 CSF RBC 3 /mm3 (0-0) 02/01/22 04:22 CSF Seg Neutrophils 0 % (0-6) 02/01/22 04:22 CSF Lymphocytes % 99.0 % (40-80) 02/01/22 04:22 CSF Reactive Lymphs 0 % 02/01/22 04:22 CSF Monocytes % 0 % (15-45) 02/01/22 04:22 CSF Eosinophils % 1.0 % 02/01/22 04:22 CSF Basophils 0 % 02/01/22 04:22 CSF Pathologist Review C 02/01/22 04:22 CSF Glucose 60 mg/dL 02/01/22 04:22 CSF Total Protein 56 mg/dL 02/01/22 04:22 [place]/IV: Voiding Method Urinal Active Medications - Current Medications Current Medications: Generic Name Dose Route Start Last Admin Trade Name Freq PRN Reason Stop Dose Admin Acetaminophen 650 mg 02/01/22 15:10 Acetaminophen 325 Mg Tab PO Q4H PRN Pain MILD(1-3)/Fever >100.5/BARRETT Albuterol 2.5 mg 02/01/22 15:10 Albuterol 2.5 Mg/3 Ml Nebu IH Q4HRT PRN Shortness Of Breath Benzonatate 100 mg 02/01/22 15:31 Benzonatate 100 Mg Cap PO Q12H PRN Cough Cyclobenzaprine HCl 10 mg 02/02/22 14:00 02/04/22 14:13 Cyclobenzaprine 10 Mg Tab PO 10 mg TID VJ Administration Dolutegravir Sodium 50 mg 02/03/22 16:00 02/04/22 09:17 Dolutegravir 50 Mg Tab PO 50 mg QDAY VJ Administration Emtricitabine 200 mg 02/03/22 16:00 02/04/22 09:17 Emtricitabine 200 Mg Cap PO 200 mg QDAY VJ Administration Hydromorphone HCl 0.5 mg 02/01/22 15:10 02/01/22 17:45 Hydromorphone 1 Mg/1 Ml Inj IV 0.5 mg Q8H PRN Administration Pain , Severe (7-10) Sodium Chloride 1,000 mls @ 42 mls/hr 02/01/22 15:15 02/04/22 12:45 Nacl 0.9% 1000 Ml IV 42 mls/hr DIRECT VJ Administration Methylprednisolone Sodium 250 mls @ 250 mls/hr 02/03/22 11:00 02/04/22 12:45 Succinate 1,000 mg/ Sodium IV 02/05/22 11:59 250 mls/hr Chloride Q24H JV Administration Ondansetron HCl 4 mg 02/01/22 15:10 02/01/22 19:30 Ondansetron 4 Mg/2 Ml Inj IV 4 mg Q8H PRN Administration Nausea And Vomiting Oxycodone/Acetaminophen 1 tab 02/01/22 15:10 02/04/22 16:46 Oxycodone /Acetaminophen 5-325mg Tab PO 1 tab Q6H PRN Administration Pain, Moderate (4-6) Sodium Chloride 10 ml 02/01/22 22:00 02/04/22 09:17 Sodium Chloride 0.9% 10 Ml Flush Syringe IV 10 ml BID VJ Administration Sodium Chloride 10 ml 02/01/22 15:10 Sodium Chloride 0.9% 10 Ml Flush Syringe IV PRN PRN LINE FLUSH Tenofovir Disoproxil Fumarate 300 mg 02/03/22 16:00 02/04/22 09:17 Tenofovir 300 Mg Tab PO 300 mg QDAY VJ Administration
[2022-02-04] MEDS: ENOXAPARIN 40 MG/0.4 ML INJ SUB-Q SCH (21:28)
--- NOTE | 2022-02-05 08:30 | Progress Note ---
Assessment and Plan Assessment and plan: 41 YO Male with Nicotine Dependence, HIV on Antiretroviral therapy with Biktarvy, Peripheral Neuropathy presents to ED for lower extremity weakness. In ER pt. had extensive work up including CT brain/xry neck, MRI with gd to brain ,Cervical dorsal and lumber all remarkable for mild degenerative disc dis ease in cervical and lumber with no enhancment , no sign of demylinating disease. patient admitted for further evaluation and management. ER physician discussed the case with on-call neurosurgeon Dr. Gonzales, who reviewed the MRI and CT L-spine, and felt that there is no surgical indication The findings are due to inflammatory process, recommended neuro evaluation. Work-up so far: MRI thoracic spine with and without; No focal disc herniation, spinal canal stenosis or nerve root compression no cause for patient's symptomatology MRI lumbar spine without and with; degenerative changes of the lumbar spine; minimal facet hypertrophy, L1-2, L2-3, mild disc bulge L3-4 L4-5 mild disc bulge small right paracentral subarticular zone disc extrusion with disc material extending to the pretty close level of L5 L5-S1 mild to moderate facet hypertrophy minimal disc bulge there is encroachment upon L5 nerve without impingement Impression degenerative changes of the lumbar spine MR cervical spine without and with; degenerative changes of the cervical spine no definitive cause for patient's leg weakness identified MRI brain no focal mass hemorrhage hydrocephalus or acute ischemia. Assessment and plan: -- Transverse myelitis with lower extremity weakness Neurology Dr. Garcia evaluated the patient, advised to continue high-dose IV steroid therapy for total 72 hours, Ordered CT scan head, MRI, HSV PCR, CSF viral titer, lumbar puncture. Further care and evaluation as per neurology team. -- HIV (human immunodeficiency virus infection) Continue current therapy, outpatient infectious disease follow-up. -- Nicotine dependence Smoking cessation counseling, supportive care, behavior change counseling, +15 minutes. -- DVT prophylaxis SCD to bilateral lower extremities while in bed -- Advance care planning Disease education conducted, care plan discussed, diagnoses discussed, prognosis discussed, patient is full code. Patient and acknowledged understanding and agreement with care plan, +30 minutes. -- Preventative health care Patient counseled regarding risk factor reduction, follow-up with primary care discussed the case with for all age and risk factor appropriate screening tests, smoking cessation. +15 minutes. Daily clinical course: 02/02: cont iv steroid, follow clinically. Patient admits to weeks of flulike symptoms before developing back pain and lower extremity weakness. If symptoms does not improve in 72 hours patient may need to be transferred to [place] as we do not have neurological for possible IVIG transfusion. We will monitor urine output, will place catheter as needed. 02/03: Continue IV Solu-Medrol 1 g daily for total 3 days. Discussed with neurology by phone today and recommended to continue high-dose of steroid until tomorrow. If no symptomatic improvement or symptoms continue to get worse patient would need IVIG therapy for at least for 5 days. If we do not have neurology service at the level then patient may need to transfer to [place]. Continue to follow clinically, follow-up pending lab orders. 02/04; patient is on high-dose steroids, consulted on-call neurologist for possible IVIG therapy Patient's condition, consultants recommendations and treatment plan discussed in detail with the patient, and family members over patient's speaker phone. Follow pending CSF analysis reports, consulted on-call telemetry neurologist Dr. Hamm 02/05; pending evaluation by telemetry neurologist Continue current management, we may also consider transfer to higher level of care if no improvement History Interval history: I have seen and examined the patient at the bedside, patient's chart and medications reviewed Patient feels slightly better overall however his lower extremity weakness did not improve Patient is on high-dose steroids day 3 today Pending telemetry neurology evaluation and recommendations Vital signs noted Hospitalist Physical - Constitutional Vitals: Temp Pulse Resp BP Pulse Ox 98.3 F 62 20 167/88 93 02/05/22 05:34 02/05/22 05:34 02/05/22 05:34 02/05/22 05:34 02/05/22 05:34 General appearance: Present: no acute distress, well-nourished - EENT Eyes: Present: PERRL, EOM intact - Neck Neck: Present: supple, normal ROM - Respiratory Respiratory effort: normal Respiratory: bilateral: diminished, negative: rales, rhonchi, wheezing - Cardiovascular Rhythm: regular Heart Sounds: Present: S1 & S2 - Extremities Extremities: no ischemia, No edema - Abdominal General gastrointestinal: soft, non-tender, non-distended - Integumentary Integumentary: Present: clear, warm - Psychiatric Psychiatric: appropriate mood/affect, agitated - Neurologic Neurologic: other (Numbness unable to move bilateral lower extremities, motor power 1/5) Results - Labs CBC & Chem 7: 02/04/22 04:24 02/04/22 04:24 Labs: Laboratory Last Values WBC 17.4 K/mm3 (4.5-11.0) H 02/04/22 04:24 RBC 4.50 M/mm3 (3.65-5.03) 02/04/22 04:24 Hgb 12.8 gm/dl (11.8-15.2) 02/04/22 04:24 Hct 39.2 % (35.5-45.6) 02/04/22 04:24 MCV 87 fl (84-94) 02/04/22 04:24 MCH 28 pg (28-32) 02/04/22 04:24 MCHC 33 % (32-34) 02/04/22 04:24 RDW 14.0 % (13.2-15.2) 02/04/22 04:24 Plt Count 206 K/mm3 (140-440) 02/04/22 04:24 Lymph % (Auto) 22.0 % (13.4-35.0) 02/02/22 04:19 [place] % (Auto) 2.1 % (0.0-7.3) 02/02/22 04:19 Eos % (Auto) 0.0 % (0.0-4.3) 02/02/22 04:19 Baso % (Auto) 0.5 % (0.0-1.8) 02/02/22 04:19 Lymph # (Auto) 1.2 K/mm3 (1.2-5.4) 02/02/22 04:19 [place] # (Auto) 0.1 K/mm3 (0.0-0.8) 02/02/22 04:19 Eos # (Auto) 0.0 K/mm3 (0.0-0.4) 02/02/22 04:19 Baso # (Auto) 0.0 K/mm3 (0.0-0.1) 02/02/22 04:19 Add Manual Diff Complete 02/04/22 04:24 Total Counted 100 02/04/22 04:24 Seg Neutrophils % 75.4 % (40.0-70.0) H 02/02/22 04:19 Seg Neuts % (Manual) 86.0 % (40.0-70.0) H 02/04/22 04:24 Band Neutrophils % 1.0 % 02/04/22 04:24 Lymphocytes % (Manual) 7.0 % (13.4-35.0) L 02/04/22 04:24 Reactive Lymphs % (Man) 0 % 02/04/22 04:24 Monocytes % (Manual) 6.0 % (0.0-7.3) 02/04/22 04:24 Eosinophils % (Manual) 0 % (0.0-4.3) 02/04/22 04:24 Basophils % (Manual) 0 % (0.0-1.8) 02/04/22 04:24 Metamyelocytes % 0 % 02/04/22 04:24 Myelocytes % 0 % 02/04/22 04:24 Promyelocytes % 0 % 02/04/22 04:24 Blast Cells % 0 % 02/04/22 04:24 Nucleated RBC % Not Reportable 02/04/22 04:24 Seg Neutrophils # 4.0 K/mm3 (1.8-7.7) 02/02/22 04:19 Seg Neutrophils # Man 15.0 K/mm3 (1.8-7.7) H 02/04/22 04:24 Band Neutrophils # 0.2 K/mm3 02/04/22 04:24 Lymphocytes # (Manual) 1.2 K/mm3 (1.2-5.4) 02/04/22 04:24 Abs React Lymphs (Man) 0.0 K/mm3 02/04/22 04:24 Monocytes # (Manual) 1.0 K/mm3 (0.0-0.8) H 02/04/22 04:24 Eosinophils # (Manual) 0.0 K/mm3 (0.0-0.4) 02/04/22 04:24 Basophils # (Manual) 0.0 K/mm3 (0.0-0.1) 02/04/22 04:24 Metamyelocytes # 0.0 K/mm3 02/04/22 04:24 Myelocytes # 0.0 K/mm3 02/04/22 04:24 Promyelocytes # 0.0 K/mm3 02/04/22 04:24 Blast Cells # 0.0 K/mm3 02/04/22 04:24 WBC Morphology Not Reportable 02/04/22 04:24 Hypersegmented Neuts Not Reportable 02/04/22 04:24 Hyposegmented Neuts Not Reportable 02/04/22 04:24 Hypogranular Neuts Not Reportable 02/04/22 04:24 Smudge Cells Not Reportable 02/04/22 04:24 Toxic Granulation Not Reportable 02/04/22 04:24 Toxic Vacuolation Not Reportable 02/04/22 04:24 Dohle Bodies Not Reportable 02/04/22 04:24 Pelger-Huet Anomaly Not Reportable 02/04/22 04:24 Junior Rods Not Reportable 02/04/22 04:24 Platelet Estimate Consistent w auto 02/04/22 04:24 Clumped Platelets Not Reportable 02/04/22 04:24 Plt Clumps, EDTA Not Reportable 02/04/22 04:24 Large Platelets Not Reportable 02/04/22 04:24 Giant Platelets Not Reportable 02/04/22 04:24 Platelet Satelliting Not Reportable 02/04/22 04:24 Plt Morphology Comment Not Reportable 02/04/22 04:24 RBC Morphology Normal 02/04/22 04:24 Dimorphic RBCs Not Reportable 02/04/22 04:24 Polychromasia Not Reportable 02/04/22 04:24 Hypochromasia Not Reportable 02/04/22 04:24 Poikilocytosis Not Reportable 02/04/22 04:24 Anisocytosis Not Reportable 02/04/22 04:24 Microcytosis Not Reportable 02/04/22 04:24 Macrocytosis Not Reportable 02/04/22 04:24 Spherocytes Not Reportable 02/04/22 04:24 Pappenheimer Bodies Not Reportable 02/04/22 04:24 Sickle Cells Not Reportable 02/04/22 04:24 Target Cells Not Reportable 02/04/22 04:24 Tear Drop Cells Not Reportable 02/04/22 04:24 Ovalocytes Not Reportable 02/04/22 04:24 Helmet Cells Not Reportable 02/04/22 04:24 [place] Bodies Not Reportable 02/04/22 04:24 [place] Rings Not Reportable 02/04/22 04:24 [place] Cells Not Reportable 02/04/22 04:24 Bite Cells Not Reportable 02/04/22 04:24 Crenated Cell Not Reportable 02/04/22 04:24 Elliptocytes Not Reportable 02/04/22 04:24 Acanthocytes (Spur) Not Reportable 02/04/22 04:24 Rouleaux Not Reportable 02/04/22 04:24 Hemoglobin C Crystals Not Reportable 02/04/22 04:24 Schistocytes Not Reportable 02/04/22 04:24 Malaria parasites Not Reportable 02/04/22 04:24 ESR 24 mm/Hr (0-20) 02/02/22 13:02 Imtiaz Bodies Not Reportable 02/04/22 04:24 Hem Pathologist Commnt No 02/04/22 04:24 PT 12.7 Sec. (12.2-14.9) 02/01/22 02:08 INR 0.87 (0.87-1.13) 02/01/22 02:08 Sodium 143 mmol/L (137-145) 02/04/22 04:24 Potassium 4.0 mmol/L (3.6-5.0) 02/04/22 04:24 Chloride 109.8 mmol/L (98-107) H 02/04/22 04:24 Carbon Dioxide 24 mmol/L (22-30) 02/04/22 04:24 Anion Gap 13 mmol/L 02/04/22 04:24 BUN 16 mg/dL (9-20) 02/04/22 04:24 Creatinine 0.8 mg/dL (0.8-1.3) 02/04/22 04:24 Estimated GFR > 60 ml/min 02/04/22 04:24 BUN/Creatinine Ratio 20 % 02/04/22 04:24 Glucose 143 mg/dL (75-100) H 02/04/22 04:24 POC Glucose 127 mg/dL (70-105) H 01/31/22 21:36 Lactic Acid 0.60 mmol/L (0.7-2.0) L 02/01/22 02:08 Calcium 8.6 mg/dL (8.4-10.2) 02/04/22 04:24 Total Bilirubin 0.20 mg/dL (0.1-1.2) 02/02/22 04:19 AST 24 units/L (5-40) 02/02/22 04:19 ALT 13 units/L (7-56) 02/02/22 04:19 Alkaline Phosphatase 85 units/L (35-129) 02/02/22 04:19 C-Reactive Protein 1.00 mg/dL (0.00-1.30) 02/01/22 02:08 Total Protein 7.1 g/dL (6.3-8.2) 02/02/22 04:19 Albumin 3.6 g/dL (3.9-5) L 02/02/22 04:19 Albumin/Globulin Ratio 1.0 % 02/02/22 04:19 Vitamin B12 331.5 pg/mL (211-911) 02/02/22 13:02 Urine Color Straw (Yellow) 02/01/22 Unknown Urine Turbidity Clear (Clear) 02/01/22 Unknown Urine pH 7.0 (5.0-7.0) 02/01/22 Unknown Ur Specific [place] 1.009 (1.003-1.030) 02/01/22 Unknown Urine Protein <15 mg/dl mg/dL (Negative) 02/01/22 Unknown Urine Glucose (UA) Neg mg/dL (Negative) 02/01/22 Unknown Urine Ketones Neg mg/dL (Negative) 02/01/22 Unknown Urine Blood Neg (Negative) 02/01/22 Unknown Urine Nitrite Neg (Negative) 02/01/22 Unknown Urine Bilirubin Neg (Negative) 02/01/22 Unknown Urine Urobilinogen < 2.0 mg/dL (<2.0) 02/01/22 Unknown Ur Leukocyte Esterase Neg (Negative) 02/01/22 Unknown Urine WBC (Auto) < 1.0 /HPF (0.0-6.0) 02/01/22 Unknown Urine RBC (Auto) < 1.0 /HPF (0.0-6.0) 02/01/22 Unknown Urine Mucus Few /HPF 02/01/22 Unknown CSF Appearance Clear 02/01/22 04:22 CSF Color Colorless 02/01/22 04:22 CSF WBC 31 /mm3 (1-10) 02/01/22 04:22 CSF RBC 3 /mm3 (0-0) 02/01/22 04:22 CSF Seg Neutrophils 0 % (0-6) 02/01/22 04:22 CSF Lymphocytes % 99.0 % (40-80) 02/01/22 04:22 CSF Reactive Lymphs 0 % 02/01/22 04:22 CSF Monocytes % 0 % (15-45) 02/01/22 04:22 CSF Eosinophils % 1.0 % 02/01/22 04:22 CSF Basophils 0 % 02/01/22 04:22 CSF Pathologist Review C 02/01/22 04:22 CSF Glucose 60 mg/dL 02/01/22 04:22 CSF Total Protein 56 mg/dL 02/01/22 04:22 [place]/IV: Voiding Method Urinal Active Medications - Current Medications Current Medications: Generic Name Dose Route Start Last Admin Trade Name Freq PRN Reason Stop Dose Admin Acetaminophen 650 mg 02/01/22 15:10 Acetaminophen 325 Mg Tab PO Q4H PRN Pain MILD(1-3)/Fever >100.5/BARRETT Albuterol 2.5 mg 02/01/22 15:10 Albuterol 2.5 Mg/3 Ml Nebu IH Q4HRT PRN Shortness Of Breath Benzonatate 100 mg 02/01/22 15:31 Benzonatate 100 Mg Cap PO Q12H PRN Cough Cyclobenzaprine HCl 10 mg 02/02/22 14:00 02/04/22 21:28 Cyclobenzaprine 10 Mg Tab PO 10 mg TID VJ Administration Dolutegravir Sodium 50 mg 02/03/22 16:00 02/04/22 09:17 Dolutegravir 50 Mg Tab PO 50 mg QDAY VJ Administration Emtricitabine 200 mg 02/03/22 16:00 02/04/22 09:17 Emtricitabine 200 Mg Cap PO 200 mg QDAY VJ Administration Enoxaparin Sodium 40 mg 02/04/22 22:00 02/04/22 21:28 Enoxaparin 40 Mg/0.4 Ml Inj SUB-Q 40 mg QDAY@2200 VJ Administration Protocol Hydromorphone HCl 0.5 mg 02/01/22 15:10 02/01/22 17:45 Hydromorphone 1 Mg/1 Ml Inj IV 0.5 mg Q8H PRN Administration Pain , Severe (7-10) Sodium Chloride 1,000 mls @ 42 mls/hr 02/01/22 15:15 02/04/22 12:45 Nacl 0.9% 1000 Ml IV 42 mls/hr DIRECT VJ Administration Methylprednisolone Sodium 250 mls @ 250 mls/hr 02/03/22 11:00 02/04/22 12:45 Succinate 1,000 mg/ Sodium IV 02/05/22 11:59 250 mls/hr Chloride Q24H VJ Administration Ondansetron HCl 4 mg 02/01/22 15:10 02/01/22 19:30 Ondansetron 4 Mg/2 Ml Inj IV 4 mg Q8H PRN Administration Nausea And Vomiting Oxycodone/Acetaminophen 1 tab 02/01/22 15:10 02/04/22 16:46 Oxycodone /Acetaminophen 5-325mg Tab PO 1 tab Q6H PRN Administration Pain, Moderate (4-6) Sodium Chloride 10 ml 02/01/22 22:00 02/04/22 22:58 Sodium Chloride 0.9% 10 Ml Flush Syringe IV Not Given BID VJ Sodium Chloride 10 ml 02/01/22 15:10 Sodium Chloride 0.9% 10 Ml Flush Syringe IV PRN PRN LINE FLUSH Tenofovir Disoproxil Fumarate 300 mg 02/03/22 16:00 02/04/22 09:17 Tenofovir 300 Mg Tab PO 300 mg QDAY VJ Administration
--- NOTE | 2022-02-05 09:18 | Progress Note ---
Assessment and Plan Please transfer this patient emergently to a facility with bedside neurology as teleneurology does not allow the kind of detailed neurologic exam needed for this complex case. Giuseppe Hamm MD Neurology Subjective Date of service: 02/05/22 Interval history: Please transfer this patient emergently to a facility with bedside neurology as teleneurology does not allow the kind of detailed neurologic exam needed for this complex case. Giuseppe Hamm MD Neurology Objective - Vital Sign Vital Signs - 12hr 02/04/22 02/04/22 02/05/22 22:00 22:31 05:34 Temperature 98.2 F 98.3 F Pulse Rate 58 L 62 Respiratory 20 20 Rate Blood Pressure 167/88 Blood Pressure 156/87 [Left] O2 Sat by Pulse 95 95 93 Oximetry - Laboratory Findings CBC and BMP: 02/04/22 04:24 02/04/22 04:24 Abnormal Lab Findings: Abnormal Labs 01/31/22 02/01/22 02/01/22 21:36 02:08 02:08 WBC 3.7 L Seg Neutrophils % Seg Neuts % (Manual) Lymphocytes % (Manual) 53.0 H Seg Neutrophils # Man 1.7 L Monocytes # (Manual) Chloride Glucose 109 H POC Glucose 127 H Lactic Acid Albumin 3.6 L 02/01/22 02/02/22 02/02/22 02:08 04:19 04:19 WBC Seg Neutrophils % 75.4 H Seg Neuts % (Manual) Lymphocytes % (Manual) Seg Neutrophils # Man Monocytes # (Manual) Chloride Glucose 138 H POC Glucose Lactic Acid 0.60 L Albumin 3.6 L 02/04/22 02/04/22 04:24 04:24 WBC 17.4 H Seg Neutrophils % Seg Neuts % (Manual) 86.0 H Lymphocytes % (Manual) 7.0 L Seg Neutrophils # Man 15.0 H Monocytes # (Manual) 1.0 H Chloride 109.8 H Glucose 143 H POC Glucose Lactic Acid Albumin
[2022-02-05] MEDS: CYCLOBENZAPRINE 10 MG TAB PO SCH ×3 (09:41→21:01)
[2022-02-05] MEDS: EMTRICITABINE 200 MG CAP PO SCH (09:41)
[2022-02-05] MEDS: TENOFOVIR 300 MG TAB PO SCH (09:41)
[2022-02-05] MEDS: DOLUTEGRAVIR 50 MG TAB PO SCH (09:41)
[2022-02-05] MEDS: oxyCODONE /ACETAMINOPHEN 5-325MG TAB PO PRN (09:43)
[2022-02-05] MEDS: methylPREDNISolone Sod Suc 1,000 MG in SODIUM CHLORIDE 0.9% 250ML 250 ML IV SCH (12:52)
--- NOTE | 2022-02-05 18:09 | Event Note ---
Date: 02/05/22 Telemetry neurologist advised transfer the patient to [facility] for higher level of care Where neurologist is available for better evaluation and management of this patient I initiated the transfer process, called [facility] [phone] and discussed with transfer center nurse Ms. Ingram And discussed in detail patient's diagnosis, personal information, reason for transfer to neurologist as recommended by our telemetry neurologist. She took the details and requested me to asked the floor to send the facesheet to the transfer center to the fax number of [phone]. She will check with the utilization review committee and will get back to us. I informed these details to the patient's nurse and the charge nurse. We will also inform covering hospitalist and the speech and hearing director.
--- NOTE | 2022-02-05 19:09 | Event Note ---
Date: 02/05/22 I received a call back from [facility] and I discussed in detail with neurologist Dr. Linton , the patient's condition, tests and reports, treatment plan And the telemetry neurologist recommendations of transferring to [facility] for higher level of care and close neuro monitoring, I answered all his questions. They want to transfer the patient pending bed availability. Ms. Narvaezyl the transfer center nurse said it may not happen tonight Probably she would call me back tomorrow with bed availability . I informed the same with the patient's nurse, Ms. Aranda.
--- NOTE | 2022-02-05 19:32 | Discharge Summary ---
Providers - Providers Date of Admission: 02/01/22 15:10 Date of discharge: 02/05/22 Attending physician: JOSE DANIEL WISEMAN 02/01/22 14:57 Consult to Physician [CONS] Stat Comment: Consulting Provider: NAPOLEON LU Physician Instructions: Reason For Exam: Bilateral lower extremity weakness 02/03/22 12:56 Physical Therapy Evaluation and Treat [CONS] Routine Comment: Reason For Exam: Debility 02/04/22 18:14 Consult to Physician [CONS] Routine Comment: Consulting Provider: JAMI LAGUNA Physician Instructions: Reason For Exam: Bilateral lower extremity weakness/HIV [facility] Reason for admission: Bilateral lower extremity weakness and numbness of 3 days duration Condition: Stable Pertinent studies: Work-up so far: MRI thoracic spine with and without; No focal disc herniation, spinal canal stenosis or nerve root compression no cau se for patient's symptomatology MRI lumbar spine without and with; degenerative changes of the lumbar spine; minimal facet hypertrophy, L1-2, L2-3, mild disc bulge L3-4 L4-5 mild disc bulge small right paracentral subarticular zone disc extrusion with disc material extending to the pretty close level of L5 L5-S1 mild to moderate facet hypertrophy minimal disc bulge there is encroachment upon L5 nerve without impingement Impression degenerative changes of the lumbar spine MR cervical spine without and with; degenerative changes of the cervical spine no definitive cause for patient's leg weakness identified MRI brain no focal mass hemorrhage hydrocephalus or acute ischemia. Procedures: Lumbar puncture/follow CSF analysis Hospital course: 41-year-old male patient with significant past medical history of HIV on antiretroviral therapy, peripheral neuropathy, ongoing tobacco use was admitted to emergency room with history of bilateral lower extremity weakness of 3 days duration . Patient was evaluated by neurologist, patient had extensive neuro work-up including CT head without contrast, CT cervical spine, CT lumbar spine, CT t horacic spine, MRI of brain, cervical, thoracic, lumbar spines. The findings of which are as mentioned above Patient also underwent lumbar puncture, some of the tests are still pending Neurologist felt that patient symptomatology and findings are consistent with possible transverse myelitis, recommended high-dose steroids for 3 days with 100 mg of Solu-Medrol IV daily, and if no improvement recommended IVIG daily for 5 days. Patient completed 3 days of high-dose steroids no improvement, today telemetry neurologist evaluated the patient and recommended transfer to [facility] for close monitoring and higher level of care by neurologist. I called the transfer center discussed with neurologist Dr. Linton who accepted the patient for possible transfer tonight, and transfer center nurse requested The transportation to be arranged by [facility]. I informed the nursing pattern grader supervisor at [phone] Today patient is comfortable some discomfort in his lower extremities, still unable to move. Vital signs reviewed. Patient is hemodynamically stable for discharge and transfer when bed is available. Final diagnosis; --COVID-19 test negative -- Possible transverse myelitis with lower extremity weakness Neurology Dr. Lu evaluated the patient on 02/02/2022, advised high-dose IV steroid therapy for total 72 hours, If no improvement recommended 5 days of IVIG[did not initiate, patient is being transferred to [facility]] Consider physical therapy occupational therapy when patient is stable --Leukocytosis; WBC 17.4 Probably secondary to high-dose steroids that patient received last 3 days Monitor closely -- HIV (human immunodeficiency virus infection) Continue current HIV medications and supportive care --Hypertension; Moderate control Continue current antihypertensives and hydralazine - Nicotine dependence Smoking cessation counseling done Only advised to quit tobacco use, nicotine patch as needed -- DVT prophylaxis Subcu Lovenox --Full CODE STATUS -- Advance care planning Disease education conducted, care plan discussed, diagnoses discussed, prognosis discussed, patient is full code. Patient and acknowledged understanding and agreement with care plan, +30 minutes. Patient will be transferred to [facility] to the service of neurologist Dr. Linton When bed is available [facility] should set up transportation. Informed charge nurse/nursing pattern grader supervisor Hemodynamically stable at discharge and transfer Dictation box dictation box Disposition: 02 [facility]ORT TERM [facility] Final Discharge Diagnosis (Prints w/discharge instructions): COVID test is negative. Possible transverse myelitis. Leukocytosis. HIV. Hypertension. Nicotine dependence. DVT prophylaxis Time spent for discharge: 40 minutes Core Measure Documentation - Palliative Care Palliative Care/ Comfort Measures: Not Applicable - Core Measures Any of the following diagnoses?: none Exam - Constitutional Vitals: Temp Pulse Resp BP Pulse Ox 98.1 F 84 16 179/90 97 02/05/22 15:55 02/05/22 15:55 02/05/22 15:55 02/05/22 15:55 02/05/22 15:55 General appearance: Present: no acute distress, well-nourished - EENT Eyes: Present: PERRL, EOM intact - Neck Neck: Present: supple, normal ROM - Respiratory Respiratory effort: normal Respiratory: bilateral: diminished, negative: rales, rhonchi, wheezing - Cardiovascular Rhythm: regular Heart Sounds: Present: S1 & S2 - Extremities Extremities: no ischemia, No edema, abnormal (Unable to move, motor power 1/5 bilateral lower extremities, 5/5 bilateral upper extremities) Extremity abnormal: other - Abdominal General gastrointestinal: Present: soft, non-tender, non-distended, normal bowel sounds - Integumentary Integumentary: Present: clear, warm - Musculoskeletal Musculoskeletal: other (Bilateral lower extremity weakness and numbness) - Neurologic Neurologic: other (Decreased sensation lower extremities, motor power 1/5 kavin LE, 4-5/5 bilateral UE) Plan Activity: advance as tolerated, fall precautions Diet: regular Additional Instructions: Patient is being transferred to [facility] to the service of the neurologist Dr. Linton. For further evaluation and management[in-house neurologist not available at [facility]] [facility] [Primary [facility] Provider] - 3-5 Days
[2022-02-05] MEDS ORDERED: hydrALAZINE 20 MG/1 ML INJ IV PRN (20:04)
[2022-02-05 20:57] VITALS: BP 168/97
[2022-02-05] MEDS: ENOXAPARIN 40 MG/0.4 ML INJ SUB-Q SCH (21:01)
[2022-02-05] MEDS ORDERED: hydrALAZINE 25 MG TAB PO SCH (22:00)
== END 2022-02-05 09:35 | disposition short-term general hospital (02) | DRG 97 ==
LOC: ED 21:29 → 3A 02-01 15:10
PROVIDERS: ADMIT Internal Medicine; ATTEND Internal Medicine
PROC: 009U3ZX Drainage of Spinal Canal, Percutaneous Approach, Diagnostic (ICD-10-PCS; principal; 2022-02-01)
DX: G37.3 Acute transverse myelitis in demyelinating disease of central nervous system (principal); B20 Human immunodeficiency virus [HIV] disease; E44.0 Moderate protein-calorie malnutrition; F17.213 Nicotine dependence, cigarettes, with withdrawal; Z20.822 Contact with and (suspected) exposure to COVID-19; D72.829 Elevated white blood cell count, unspecified; Z82.49 Family history of ischemic heart disease and other diseases of the circulatory system; Z90.49 Acquired absence of other specified parts of digestive tract; Z88.2 Allergy status to sulfonamides; Z88.8 Allergy status to other drugs, medicaments and biological substances
CPT/HCPCS: 36415; 70450; 70551; 71045; 72125; 72128; 72131; 72146; 72156; 72158; 80048; 80053; 81001; 82140; 82607; 82947; 82962; 83916; 84160; 85007; 85025; 85610; 85652; 86038; 86140; 86235; 86403; 86592; 87102; 87116; 87498; 87529; 87799; 89051; 94640; G0378; A9575; J1170; J1650; J2270; J2405; J2920; J2930; J7030; J7050; U0003

== ENCOUNTER 2022-05-23 15:30 | Inpatient (IN) | payer MEDICAID ==
[2022-05-23] MEDS ORDERED: SODIUM CHLORIDE 0.9% 1000 ML IV SOLN IV ONE (17:12)
[2022-05-23] MEDS ORDERED: HYDROmorphone 0.5 MG/0.5 ML INJ IV ONE (17:14)
[2022-05-23] MEDS ORDERED: ONDANSETRON 4 MG/2 ML INJ IV ONE (17:14)
[2022-05-23] MEDS ORDERED: KETOROLAC 30 MG/1 ML INJ IV ONE (17:14)
[2022-05-23] MEDS ORDERED: ACETAMINOPHEN 325 MG TAB PO ONE (17:16)
--- NOTE | 2022-05-23 17:50 | XRay Report ---
CHEST 1 VIEW 05/23/2022 4:37 PM INDICATION / CLINICAL INFORMATION: fever. COMPARISON: 02/01/2022 FINDINGS: SUPPORT DEVICES: None. HEART / MEDIASTINUM: No significant abnormality. LUNGS / PLEURA: No significant pulmonary or pleural abnormality. No pneumothorax. ADDITIONAL FINDINGS: None IMPRESSION: 1. No acute chest process. Signer Name: Andrea Ball MD Signed: 05/23/2022 5:45 PM Workstation Name: [facility]
--- NOTE | 2022-05-23 18:02 | Emergency Department Report ---
ED Fever HPI - General Chief Complaint: Pain General Stated Complaint: PAIN Time Seen by Provider: 05/23/22 16:53 Source: patient, old records Exam Limitations: no limitations - History of Present Illness Initial Comments: 41-year-old male with a past medical history of HIV currently on antiretrovirals with undetectable viral load, neuropathy, chronic back pain, previous append ectomy, and recent admission here in January with subsequent transfer to [place] for possible transverse myelitis (afebrile at time of presentation) presents to the hospital with complaints of generalized body aches and fever since yesterday. Patient reports a temperature 105 at home. Temp 102 upon arrival. Patient complains of diffuse muscular pain and arthralgias worse with palpation and movement with swelling to multiple joints. Patient reports that he received COVID vaccination plus booster and had a negative [id number] COVID test yesterday. Patient denies tick bite. Patient was discharged from [place] in a wheelchair and has since undergone physical therapy and can walk without assi stance at baseline ED Review of Systems ROS: Stated complaint: PAIN Other details as noted in HPI Comment: All other systems reviewed and negative ED Past Medical Hx - Past Medical History Previous Medical History?: Yes Hx HIV: Yes Additional medical history: NEUROPATHY, Back pain - Surgical History Hx Appendectomy: Yes Additional Surgical History: BIOPSY LYMPH NODE - Social History Smoking Status: Never Smoker Substance Use Type: None - Medications Home Medications: Home Medications Medication Instructions Recorded Confirmed Last Taken Type ALBUTEROL NEB's [Proventil 0.083% 2.5 mg IH Q4HRT PRN nebu 02/05/22 Unknown Rx NEBS] Acetaminophen [Acetaminophen TAB] 650 mg PO Q4H PRN tablet 02/05/22 Unknown Rx Benzonatate [Tessalon Perles] 100 mg PO Q12H PRN capsule 02/05/22 Unknown Rx Cyclobenzaprine [Flexeril 10 MG 10 mg PO TID tablet 02/05/22 Unknown Rx TAB] Dolutegravir [Tivicay] 50 mg PO QDAY tablet 02/05/22 Unknown Rx Emtricitabine [Emtriva] 200 mg PO QDAY capsule 02/05/22 Unknown Rx Enoxaparin 40 mg SUB-Q QDAY@2200 syringe 02/05/22 Unknown Rx HYDROmorphone [Dilaudid] 0.5 mg IV Q8H PRN syringe 02/05/22 Unknown Rx Tenofovir [Viread] 300 mg PO QDAY tablet 02/05/22 Unknown Rx oxyCODONE /ACETAMINOPHEN [Percocet 1 tab PO Q6H PRN tablet 02/05/22 Unknown Rx 5/325 mg] ED Physical Exam - General Limitations: Physical Limitation - Other Other exam information: General: No acute distress Head: Atraumatic Eyes: normal appearance ENT: Moist mucous membranes Neck: Normal appearance, no midline tenderness, no nuchal rigidity Chest: Clear to auscultation bilaterally CV: Regular rate and rhythm Abdomen: Soft, normal bowel sounds, nontender, nondistended, no rebound or guarding Back: Normal inspection Extremity: Patient has generalized muscular pain with pain, swelling, warmth, tenderness to left elbow, right wrist, right hand, left knee, and bilateral ankles Neuro: Alert O x 3, no facial asymmetry, speech clear, 5/5 upper extremity strength, unable to lift either leg off the bed against gravity secondary to pain Psych: Appropriate behavior Skin: No rash Patient reexamined at 9:26 PM after receiving pain medication He is able to move upper lower extremities better without discomfort. He has 5/5 left leg strength at this time and 3/5 right lower extremity strength after pain medication ED Course Vital Signs 05/23/22 05/23/22 05/23/22 16:21 17:06 18:43 Temperature 102 F H Pulse Rate 104 H 96 H 91 H Respiratory 16 20 19 Rate Blood Pressure 115/67 126/68 [Left] O2 Sat by Pulse 98 100 98 Oximetry 05/23/22 05/23/22 05/23/22 19:12 20:54 21:54 Temperature 98.8 F 98.3 F Pulse Rate 92 H 85 85 Respiratory 20 20 16 Rate Blood Pressure 133/78 108/58 115/87 [Left] O2 Sat by Pulse 98 98 98 Oximetry - Reevaluation(s) Reevaluation #1: 05/23/22 21:35 Patient reports feeling better after meds is able to move extremities more with less discomfort. Also can lift legs off the bed now (which she could not do prior to pain medication). Patient continues to have frequent PVCs on compliance monitor. - Consultations Consultation #1: 05/23/22 21:59 case d/w Dr Dillon commercial credit head on-call regarding frequent PVCs with several consecutive beats noted on the monitor. Patient does not need cardiac intervention at this time and will likely need acute treatment since he is asymptomatic ED Medical Decision Making - Lab Data Result diagrams: 05/23/22 18:13 05/23/22 18:13 Lab Results 05/23/22 05/23/22 05/23/22 Range/Units 18:13 18:13 18:13 WBC 6.9 (4.5-11.0) K/mm3 RBC 4.13 (3.65-5.03) M/mm3 Hgb 12.0 (11.8-15.2) gm/dl Hct 35.5 (35.5-45.6) % MCV 86 (84-94) fl MCH 29 (28-32) pg MCHC 34 (32-34) % RDW 13.5 (13.2-15.2) % Plt Count 119 L (140-440) K/mm3 Lymph % (Auto) 24.4 (13.4-35.0) % [place] % (Auto) 9.6 H (0.0-7.3) % Eos % (Auto) 0.2 (0.0-4.3) % Baso % (Auto) 0.7 (0.0-1.8) % Lymph # (Auto) 1.7 (1.2-5.4) K/mm3 [place] # (Auto) 0.7 (0.0-0.8) K/mm3 Eos # (Auto) 0.0 (0.0-0.4) K/mm3 Baso # (Auto) 0.0 (0.0-0.1) K/mm3 Add Manual Diff Complete Seg Neutrophils % 65.1 (40.0-70.0) % Seg Neutrophils # 4.5 (1.8-7.7) K/mm3 ESR TNR Sodium 139 (137-145) mmol/L Potassium 3.7 (3.6-5.0) mmol/L Chloride 102.0 (98-107) mmol/L Carbon Dioxide 25 (22-30) mmol/L Anion Gap 16 mmol/L BUN 18 (9-20) mg/dL Creatinine 0.9 (0.8-1.3) mg/dL Estimated GFR > 60 ml/min BUN/Creatinine Ratio 20 % Glucose 106 H (75-100) mg/dL Lactic Acid (0.7-2.0) mmol/L Calcium 8.5 (8.4-10.2) mg/dL Magnesium 1.90 (1.7-2.3) mg/dL Total Bilirubin 0.40 (0.1-1.2) mg/dL AST 18 (5-40) units/L ALT 9 (7-56) units/L Alkaline Phosphatase 76 (35-129) units/L Total Creatine Kinase 263 H (55-170) units/L Troponin T (0.00-0.029) ng/mL Total Protein 6.2 L (6.3-8.2) g/dL Albumin 3.8 L (3.9-5) g/dL Albumin/Globulin Ratio 1.6 % 05/23/22 05/23/22 Range/Units 18:13 18:13 WBC (4.5-11.0) K/mm3 RBC (3.65-5.03) M/mm3 Hgb (11.8-15.2) gm/dl Hct (35.5-45.6) % MCV (84-94) fl MCH (28-32) pg MCHC (32-34) % RDW (13.2-15.2) % Plt Count (140-440) K/mm3 Lymph % (Auto) (13.4-35.0) % [place] % (Auto) (0.0-7.3) % Eos % (Auto) (0.0-4.3) % Baso % (Auto) (0.0-1.8) % Lymph # (Auto) (1.2-5.4) K/mm3 [place] # (Auto) (0.0-0.8) K/mm3 Eos # (Auto) (0.0-0.4) K/mm3 Baso # (Auto) (0.0-0.1) K/mm3 Add Manual Diff Seg Neutrophils % (40.0-70.0) % Seg Neutrophils # (1.8-7.7) K/mm3 ESR Sodium (137-145) mmol/L Potassium (3.6-5.0) mmol/L Chloride (98-107) mmol/L Carbon Dioxide (22-30) mmol/L Anion Gap mmol/L BUN (9-20) mg/dL Creatinine (0.8-1.3) mg/dL Estimated GFR ml/min BUN/Creatinine Ratio % Glucose (75-100) mg/dL Lactic Acid 0.80 (0.7-2.0) mmol/L Calcium (8.4-10.2) mg/dL Magnesium (1.7-2.3) mg/dL Total Bilirubin (0.1-1.2) mg/dL AST (5-40) units/L ALT (7-56) units/L Alkaline Phosphatase (35-129) units/L Total Creatine Kinase (55-170) units/L Troponin T < 0.010 (0.00-0.029) ng/mL Total Protein (6.3-8.2) g/dL Albumin (3.9-5) g/dL Albumin/Globulin Ratio % - EKG Data -: EKG Interpreted by Me (Multiple PVCs with 4 beats of nonsustained V. tach.) EKG shows normal: sinus rhythm, intervals (QTC 443), ST-T waves (LVH) - Radiology Data Radiology results: report reviewed CHEST 1 VIEW 05/23/2022 4:37 PM INDICATION / CLINICAL INFORMATION: fever. COMPARISON: 02/01/2022 FINDINGS: SUPPORT DEVICES: None. HEART / MEDIASTINUM: No significant abnormality. LUNGS / PLEURA: No significant pulmonary or pleural abnormality. No pneumothorax. ADDITIONAL FINDINGS: None IMPRESSION: 1. No acute chest process. - Medical Decision Making 41-year-old male with HIV presents to the hospital complaining of fever and polyarticular joint pain and swelling since yesterday. Patient denies any tick bites. Patient's pain limits his ability to ambulate. He also reports worsening in his baseline weakness. Pain improving with ed treatment. Source of fever unknown. Urine results pending at disposition. No signs of severe sepsis or septic shock. Case discussed with commercial credit head regarding episodes of nonsustained V. tach which are asymptomatic. No acute intervention noted. Consult ordered per request of hospitalist. Patient covered broad-spectrum antibiotics after discussion with admitting hospitalist DR Tran. Critical Care Time: No Critical care attestation.: If time is entered above; I have spent that time in minutes in the direct care of this critically ill patient, excluding procedure time. ED Disposition Clinical Impression: Fever, Swelling of multiple joints, HIV (human immunodeficiency virus infection), Nonsustained ventricular tachycardia, Pain, joint, multiple sites Disposition: 09 ADMITTED INPATIENT Is pt being admited?: Yes Condition: Stable Referrals: ELENA WEN MD [Primary Care Provider] - 3-5 Days Time of Disposition: 22:02
[2022-05-23 18:53] LABS: Alanine Aminotransferase 9 units/L (7-56); Albumin 3.8 g/dL (3.9-5); BUN/Creatinine Ratio 20; Blood Urea Nitrogen 18 mg/dL (9-20); Calcium 8.5 mg/dL (8.4-10.2); Hemolysis Index 5
[2022-05-23 18:59] LABS: Basophils % (Auto) 0.7 % (0.0-1.8); Eosinophils % (Auto) 0.2 % (0.0-4.3); Hematocrit 35.5 % (35.5-45.6); Lymphocytes # (Auto) 1.7 K/mm3 (1.2-5.4); Lymphocytes % (Auto) 24.4 % (13.4-35.0); Mean Corpuscular HGB Conc 34 % (32-34); Mean Corpuscular Volume 86 fl (84-94); Monocytes # (Auto) 0.7 K/mm3 (0.0-0.8); Monocytes % (Auto) 9.6 % (0.0-7.3); Platelet Count 119 K/mm3 (140-440); Red Blood Count 4.13 M/mm3 (3.65-5.03); Red Cell Distribution Width 13.5 % (13.2-15.2)
[2022-05-23 19:14] LABS: Erythrocyte Sedimentation Rate TNR mm/Hr (0-20)
[2022-05-23 21:54] VITALS: BP 115/87
[2022-05-23] MEDS ORDERED: MAGNESIUM HYDROXIDE (MOM) ORAL LIQD UDC PO PRN (22:09)
[2022-05-23] MEDS ORDERED: ONDANSETRON 4 MG/2 ML INJ IV PRN (22:09)
[2022-05-23] MEDS ORDERED: ACETAMINOPHEN 325 MG TAB PO PRN (22:09)
[2022-05-23] MEDS ORDERED: MORPHINE 4 MG/1 ML INJ IV PRN (22:09)
[2022-05-23] MEDS ORDERED: CEFEPIME/NS 2 GM/100 ML 2 GM/100 ML BAG IV ONE (22:10)
[2022-05-23] MEDS ORDERED: SODIUM CHLORIDE 0.9% 1000 ML 1,000 ML IV SCH (22:15)
--- NOTE | 2022-05-23 22:19 | History and Physical Report ---
History of Present Illness Date of examination: 05/23/22 Date of admission: 05/23/2022 Chief complaint: Fever Joint pain and swelling History of present illness: 41-year-old male with known history of HIV who is currently on antiretroviral agent with nondetectable viral load, neuropathy and chronic back pain presents to the emergency room today complaining of generalized body aches and fever over the last 24 hours. Patient indicates he has had fever of about 105 F at home. Upon arrival in the emergency room, temperature was 102 F. Patient states he has had diffuse muscular and joint pain which is worse on movement. He denies any of strenuous physical activity. Denies any sick contacts and no recent travel. Denies any contact with anyone with COVID-19. Patient also indicates he had a negative [id number] COVID test yesterday. Patient denies any sore throat or oral thrush. Patient was recently admitted admitted in this facility sometime in January and subsequently transferred to [place] for possible transverse myelitis. Work-up in the emergency room today, lab was unremarkable. Chest x-ray shows no acute abnormality. Past History Past Medical History: other (Neuropathy,HIV positive) Past Surgical History: Other (Lymph Node Biopsy,Back pain) Social history: no significant social history Family history: no significant family history Medications and Allergies Allergies Allergy/AdvReac Type Severity Reaction Status Date / Time gabapentin Allergy Mild Anaphylaxis Verified 05/23/22 16:27 Sulfa (Sulfonamide Allergy Mild Anaphylaxis Verified 05/23/22 16:27 Antibiotics) Home Medications Medication Instructions Recorded Confirmed Last Taken Type ALBUTEROL NEB's [Proventil 0.083% 2.5 mg IH Q4HRT PRN nebu 02/05/22 05/24/22 Unknown Rx NEBS] Acetaminophen [Acetaminophen TAB] 650 mg PO Q4H PRN tablet 02/05/22 05/24/22 Unknown Rx Benzonatate [Tessalon Perles] 100 mg PO Q12H PRN capsule 02/05/22 05/24/22 Unknown Rx Cyclobenzaprine [Flexeril 10 MG 10 mg PO TID tablet 02/05/22 05/24/22 Unknown Rx TAB] Dolutegravir [Tivicay] 50 mg PO QDAY tablet 02/05/22 05/24/22 Unknown Rx Emtricitabine [Emtriva] 200 mg PO QDAY capsule 02/05/22 05/24/22 Unknown Rx Enoxaparin 40 mg SUB-Q QDAY@2200 syringe 02/05/22 05/24/22 Unknown Rx HYDROmorphone [Dilaudid] 0.5 mg IV Q8H PRN syringe 02/05/22 05/24/22 Unknown Rx Tenofovir [Viread] 300 mg PO QDAY tablet 02/05/22 05/24/22 Unknown Rx oxyCODONE /ACETAMINOPHEN [Percocet 1 tab PO Q6H PRN tablet 02/05/22 05/24/22 Unknown Rx 5/325 mg] Active Meds: Active Medications Acetaminophen (Acetaminophen 325 Mg Tab) 650 mg PO Q4H PRN PRN Reason: Pain MILD(1-3)/Fever >100.5/BARRETT Heparin Sodium (Porcine) (Heparin 5,000 Unit/1 Ml Vial) 5,000 unit SUB-Q Q8HR VJ Vancomycin HCl 2,000 mg/ (Sodium Chloride) 540 mls @ 333 mls/hr IV ONCE ONE; Protocol Stop: 05/23/22 23:47 Cefepime HCl (Cefepime/Ns 2 Gm/100 Ml) 2 gm in 100 mls @ 200 mls/hr IV ONCE ONE; Protocol Stop: 05/23/22 22:39 Sodium Chloride (Nacl 0.9% 1000 Ml) 1,000 mls @ 125 mls/hr IV DIRECT VJ Magnesium Hydroxide (Magnesium Hydroxide (Mom) Oral Liqd Udc) 30 ml PO Q4H PRN PRN Reason: Constipation Morphine Sulfate (Morphine 2 Mg/1 Ml Inj) 2 mg IV Q4H PRN PRN Reason: Pain, Moderate (4-6) Morphine Sulfate (Morphine 4 Mg/1 Ml Inj) 4 mg IV Q4H PRN PRN Reason: Pain , Severe (7-10) Ondansetron HCl (Ondansetron 4 Mg/2 Ml Inj) 4 mg IV Q8H PRN PRN Reason: Nausea And Vomiting Sodium Chloride (Sodium Chloride 0.9% 10 Ml Flush Syringe) 10 ml IV BID VJ Sodium Chloride (Sodium Chloride 0.9% 10 Ml Flush Syringe) 10 ml IV PRN PRN PRN Reason: LINE FLUSH Review of Systems Constitutional: fever, chills Ears, nose, mouth and throat: no nasal congestion, no sore throat, no swelling in throat Cardiovascular: no chest pain, no palpitations Respiratory: no cough, no shortness of breath Gastrointestinal: no abdominal pain, no nausea, no vomiting, no diarrhea Genitourinary Male: no dysuria, no hematuria, no flank pain, no nocturia Musculoskeletal: no neck pain, no low back pain Integumentary: no rash, no pruritis Neurological: no headaches, no change in speech, no confusion Psychiatric: no anxiety, no depression Endocrine: no polyphagia, no polydipsia, no polyuria, no nocturia Exam - Constitutional Vitals: Temp Pulse Resp BP Pulse Ox 98.3 F 85 16 115/87 98 05/23/22 21:54 05/23/22 21:54 05/23/22 21:54 05/23/22 21:54 05/23/22 21:54 General appearance: Present: no acute distress, well-nourished - EENT Eyes: Present: PERRL, EOM intact. Absent: scleral icterus ENT: hearing intact, clear oral mucosa, dentition normal - Neck Neck: Present: supple, normal ROM - Respiratory Respiratory effort: normal Respiratory: bilateral: CTA - Cardiovascular Rhythm: regular Heart Sounds: Present: S1 & S2. Absent: systolic murmur, diastolic murmur, rub, click - Extremities Extremities: no ischemia, pulses intact, pulses symmetrical, No edema, Full ROM, abnormal (tenderness to left elbow, right wrist, right hand, left knee, and bilateral ankles.Mildly warm to touch.) - Abdominal General gastrointestinal: Present: soft, non-tender, non-distended, normal bowel sounds. Absent: mass - Musculoskeletal Musculoskeletal: strength equal bilaterally - Psychiatric Psychiatric: appropriate mood/affect, intact judgment & insight, memory intact, cooperative - Neurologic Neurologic: CNII-XII intact, no focal deficits, moves all extremities HEART Score - HEART Score Troponin: Troponin T < 0.010 ng/mL (0.00-0.029) 05/23/22 18:13 Results - Labs CBC & Chem 7: 05/23/22 18:13 05/24/22 04:14 Labs: Abnormal lab results 05/23/22 05/23/22 05/23/22 Range/Units 18:13 18:13 18:13 Plt Count 119 L (140-440) K/mm3 [place] % (Auto) 9.6 H (0.0-7.3) % Glucose 106 H (75-100) mg/dL Total Creatine Kinase 263 H (55-170) units/L Total Protein 6.2 L (6.3-8.2) g/dL Albumin 3.8 L (3.9-5) g/dL Assessment and Plan Assessment: 1. Fever-etiology unknown 2. HIV positive-undetectable viral load. On antiretroviral 3. Generalized joint pain Plan: 1. Patient admitted and placed on IV fluid and analgesic medication 2. Placed on empiric IV antibiotics 3. We will await culture results 4. Consult placed to infectious disease for evaluation and further recommendations. DVT prophylaxis: Subcutaneous heparin CODE STATUS: Full code
[2022-05-23] MEDS ORDERED: VANCOMYCIN PHARMACY TO DOSE IV SCH (23:00)
[2022-05-23 23:05] LABS: Amphetamine Screen,Urine PRESUMPTIVE NEGATIVE; Benzodiazepines Screen,Urine PRESUMPTIVE NEGATIVE; Cannabinoid Screen,Urine PRESUMPTIVE NEGATIVE; Cocaine Screen,Urine PRESUMPTIVE POSITIVE; Methadone Screen,Urine PRESUMPTIVE NEGATIVE; Opiate Screen,Urine PRESUMPTIVE NEGATIVE
[2022-05-23] MEDS ORDERED: VANCOMYCIN 2,000 MG in SODIUM CHLORIDE 0.9% 500 ML 500 ML IV ONE (23:10)
[2022-05-23 23:13] LABS: Mucus,Urine FEW /HPF; RBC,Urine < 1.0 /HPF (0.0-6.0)
[2022-05-23 23:15] LABS: Color,Urine Yellow (Yellow)
[2022-05-24 05:36] LABS: BUN/Creatinine Ratio 18; Blood Urea Nitrogen 14 mg/dL (9-20); Calcium 8.1 mg/dL (8.4-10.2); Hemolysis Index 12
[2022-05-24] MEDS ORDERED: HEPARIN 5,000 UNIT/1 ML VIAL SUB-Q SCH (06:00)
[2022-05-24] MEDS: MORPHINE 2 MG/1 ML INJ IV PRN ×2 (07:26→09:21)
--- NOTE | 2022-05-24 09:35 | Progress Note ---
Assessment and Plan Assessment and plan: 41-year-old male with known history of HIV who is currently on antiretroviral agent with nondetectable viral load, neuropathy and chronic back pain presents to the emergency room today complaining of generalized body aches and fever over the last 24 hours. Patient indicates he has had fever of about 105 F at home. Upon arrival in the emergency room, temperature was 102 F. Patient states he has had diffuse muscular and joint pain which is worse on movement. He denies any of strenuous physical activity. Feveretiology unknown HIV positiveundetectable viral load Generalized myalgias and joint pain 05/24/2022. Patient reports pain all over his body that is out of proportion to the physical exam. Patient will not allow me to touch any portion of his body without complaining of overwhelming pain. Patient was transferred to [place] January 2022 for concern of transverse myelitis. Patient had extensive work-up here prior to transfer which included brain, cervical, thoracic and lumbar MRIs that were essentially negative. Lumbar puncture was also negative. I have a clinical suspicion for malingering. However, patient does have a fever which is concerning. We will obtain old records from [place] and await ID consultation. Total CK was normal. Check sed rate and CRP. Patient does have a UDS that is positive for cocaine. History Interval history: No new issues overnight Hospitalist Physical - Constitutional Vitals: Temp Pulse Resp BP Pulse Ox 98.3 F 85 16 115/87 96 05/23/22 21:54 05/23/22 21:54 05/23/22 21:54 05/23/22 21:54 05/23/22 23:09 General appearance: Present: no acute distress, well-nourished - EENT Eyes: Present: PERRL, EOM intact ENT: hearing intact, clear oral mucosa, dentition normal - Neck Neck: Present: supple, normal ROM - Respiratory Respiratory effort: normal Respiratory: bilateral: CTA - Cardiovascular Rhythm: regular Heart Sounds: Present: S1 & S2. Absent: gallop, rub - Extremities Extremities: no ischemia, No edema, Full ROM - Abdominal General gastrointestinal: soft, non-tender, non-distended, normal bowel sounds - Integumentary Integumentary: Present: clear, warm, dry - Neurologic Neurologic: CNII-XII intact, moves all extremities HEART Score - HEART Score Troponin: Troponin T < 0.010 ng/mL (0.00-0.029) 05/23/22 18:13 Results - Labs CBC & Chem 7: 05/23/22 18:13 05/24/22 04:14 Labs: Laboratory Last Values WBC 6.9 K/mm3 (4.5-11.0) 05/23/22 18:13 RBC 4.13 M/mm3 (3.65-5.03) 05/23/22 18:13 Hgb 12.0 gm/dl (11.8-15.2) 05/23/22 18:13 Hct 35.5 % (35.5-45.6) 05/23/22 18:13 MCV 86 fl (84-94) 05/23/22 18:13 MCH 29 pg (28-32) 05/23/22 18:13 MCHC 34 % (32-34) 05/23/22 18:13 RDW 13.5 % (13.2-15.2) 05/23/22 18:13 Plt Count 119 K/mm3 (140-440) L 05/23/22 18:13 Lymph % (Auto) 24.4 % (13.4-35.0) 05/23/22 18:13 [place] % (Auto) 9.6 % (0.0-7.3) H 05/23/22 18:13 Eos % (Auto) 0.2 % (0.0-4.3) 05/23/22 18:13 Baso % (Auto) 0.7 % (0.0-1.8) 05/23/22 18:13 Lymph # (Auto) 1.7 K/mm3 (1.2-5.4) 05/23/22 18:13 [place] # (Auto) 0.7 K/mm3 (0.0-0.8) 05/23/22 18:13 Eos # (Auto) 0.0 K/mm3 (0.0-0.4) 05/23/22 18:13 Baso # (Auto) 0.0 K/mm3 (0.0-0.1) 05/23/22 18:13 Add Manual Diff Complete 05/23/22 18:13 Seg Neutrophils % 65.1 % (40.0-70.0) 05/23/22 18:13 Seg Neutrophils # 4.5 K/mm3 (1.8-7.7) 05/23/22 18:13 ESR TNR 05/23/22 18:13 Sodium 144 mmol/L (137-145) 05/24/22 04:14 Potassium 3.9 mmol/L (3.6-5.0) 05/24/22 04:14 Chloride 111.7 mmol/L (98-107) H 05/24/22 04:14 Carbon Dioxide 22 mmol/L (22-30) 05/24/22 04:14 Anion Gap 14 mmol/L 05/24/22 04:14 BUN 14 mg/dL (9-20) 05/24/22 04:14 Creatinine 0.8 mg/dL (0.8-1.3) 05/24/22 04:14 Estimated GFR > 60 ml/min 05/24/22 04:14 BUN/Creatinine Ratio 18 % 05/24/22 04:14 Glucose 128 mg/dL (75-100) H 05/24/22 04:14 Lactic Acid 0.80 mmol/L (0.7-2.0) 05/23/22 18:13 Calcium 8.1 mg/dL (8.4-10.2) L 05/24/22 04:14 Magnesium 1.90 mg/dL (1.7-2.3) 05/23/22 18:13 Total Bilirubin 0.40 mg/dL (0.1-1.2) 05/23/22 18:13 AST 18 units/L (5-40) 05/23/22 18:13 ALT 9 units/L (7-56) 05/23/22 18:13 Alkaline Phosphatase 76 units/L (35-129) 05/23/22 18:13 Total Creatine Kinase 263 units/L (55-170) H 05/23/22 18:13 Troponin T < 0.010 ng/mL (0.00-0.029) 05/23/22 18:13 Total Protein 6.2 g/dL (6.3-8.2) L 05/23/22 18:13 Albumin 3.8 g/dL (3.9-5) L 05/23/22 18:13 Albumin/Globulin Ratio 1.6 % 05/23/22 18:13 Urine Color Yellow (Yellow) 05/23/22 22:15 Urine Turbidity Clear (Clear) 05/23/22 22:15 Specific [place] (Man) 1.020 (1.003-1.030) 05/23/22 22:15 Ur Protein (Man) 1+ mg/dL (Negative) 05/23/22 22:15 Ur Ketones (Man) 5mg/dl (Negative) 05/23/22 22:15 Ur Nitrite (Man) Negative (Negative) 05/23/22 22:15 Ur Reducing Substances Not Reportable 05/23/22 22:15 Urine Ictotest Not Reportable 05/23/22 22:15 Leukocyte Esterase (Man) Negative (Negative) 05/23/22 22:15 Urine WBC (Auto) 1.0 /HPF (0.0-6.0) 05/23/22 22:15 Urine RBC (Auto) < 1.0 /HPF (0.0-6.0) 05/23/22 22:15 Urine RBC (Manual) Negative (Negative) 05/23/22 22:15 Urine Mucus Few /HPF 05/23/22 22:15 Urine Opiates Screen Presumptive negative 05/23/22 22:15 Urine Methadone Screen Presumptive negative 05/23/22 22:15 Ur Barbiturates Screen Presumptive negative 05/23/22 22:15 Ur Phencyclidine Scrn Presumptive negative 05/23/22 22:15 Ur Amphetamines Screen Presumptive negative 05/23/22 22:15 U Benzodiazepines Scrn Presumptive negative 05/23/22 22:15 Urine Cocaine Screen Presumptive positive 05/23/22 22:15 U Marijuana (THC) Screen Presumptive negative 05/23/22 22:15 Drugs of Abuse Note Disclamer 05/23/22 22:15 Microbiology: Microbiology 05/23/22 18:13 Peripheral/Venous Blood Culture - Preliminary Culture in Progress 05/23/22 18:13 Peripheral/Venous Blood Culture - Preliminary Culture in Progress [place]/IV: Voiding Method Urinal Active Medications - Current Medications Current Medications: Generic Name Dose Route Start Last Admin Trade Name Freq PRN Reason Stop Dose Admin Acetaminophen 650 mg 05/23/22 22:09 Acetaminophen 325 Mg Tab PO Q4H PRN Pain MILD(1-3)/Fever >100.5/BARRETT Heparin Sodium (Porcine) 5,000 unit 05/24/22 06:00 05/24/22 07:27 Heparin 5,000 Unit/1 Ml Vial SUB-Q 5,000 unit Q8HR VJ Administration Sodium Chloride 1,000 mls @ 125 mls/hr 05/23/22 22:15 05/24/22 01:20 Nacl 0.9% 1000 Ml IV 125 mls/hr DIRECT VJ Administration Vancomycin HCl 1,500 mg/ 530 mls @ 333.333 mls/hr 05/24/22 12:00 Sodium Chloride IV Q12H VJ Magnesium Hydroxide 30 ml 05/23/22 22:09 Magnesium Hydroxide (Mom) Oral Liqd Udc PO Q4H PRN Constipation Morphine Sulfate 2 mg 05/23/22 22:09 05/24/22 09:21 Morphine 2 Mg/1 Ml Inj IV 2 mg Q4H PRN Administration Pain, Moderate (4-6) Morphine Sulfate 4 mg 05/23/22 22:09 Morphine 4 Mg/1 Ml Inj IV Q4H PRN Pain , Severe (7-10) Ondansetron HCl 4 mg 05/23/22 22:09 Ondansetron 4 Mg/2 Ml Inj IV Q8H PRN Nausea And Vomiting Sodium Chloride 10 ml 05/24/22 10:00 Sodium Chloride 0.9% 10 Ml Flush Syringe IV BID VJ Sodium Chloride 10 ml 05/23/22 22:09 Sodium Chloride 0.9% 10 Ml Flush Syringe IV PRN PRN LINE FLUSH
[2022-05-24] MEDS ORDERED: cefTRIAXone/NS 2 GM/100 ML 2 GM/100 ML BAG IV SCH (11:00)
--- NOTE | 2022-05-24 11:17 | Consultation ---
History of Present Illness Consult date: 05/24/22 Requesting physician: OMID NICOLE Consult reason: other (frequent pvc) History of present illness: 41-year-old male with history of HIV hypertension history of cocaine use was in the hospital and january for leg weakness patient was treated and transferred to [place]. On review of the records from [place] patient had negative MRI lumbar puncture and as per discharge summary was discharged with conversion disorder. Patient states for the last day and a half having bilateral hands and leg swelling with pain with movement. Fever. Patient admitted for frequent PVCs and possible septic arthritis. Patient denies IV drug use. States having fever. Patient became belligerent after discussing patient's past medical history and records from [place]. 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 Patient wants to leave. Explained to the his current regimen of medications. Explained in detail about patient's diagnosis and treatment but patient was increasingly becoming more belligerent Past History Past Medical History: other (Neuropathy,HIV positive) Past Surgical History: Other (Lymph Node Biopsy,Back pain) Social history: no significant social history Family history: no significant family history Medications and Allergies Allergies Allergy/AdvReac Type Severity Reaction Status Date / Time gabapentin Allergy Mild Anaphylaxis Verified 05/23/22 16:27 Sulfa (Sulfonamide Allergy Mild Anaphylaxis Verified 05/23/22 16:27 Antibiotics) Home Medications Medication Instructions Recorded Confirmed Last Taken Type ALBUTEROL NEB's [Proventil 0.083% 2.5 mg IH Q4HRT PRN nebu 02/05/22 05/24/22 Unknown Rx NEBS] Acetaminophen [Acetaminophen TAB] 650 mg PO Q4H PRN tablet 02/05/22 05/24/22 Unknown Rx Benzonatate [Tessalon Perles] 100 mg PO Q12H PRN capsule 02/05/22 05/24/22 Unknown Rx Cyclobenzaprine [Flexeril 10 MG 10 mg PO TID tablet 02/05/22 05/24/22 Unknown Rx TAB] Dolutegravir [Tivicay] 50 mg PO QDAY tablet 02/05/22 05/24/22 Unknown Rx Emtricitabine [Emtriva] 200 mg PO QDAY capsule 02/05/22 05/24/22 Unknown Rx Enoxaparin 40 mg SUB-Q QDAY@2200 syringe 02/05/22 05/24/22 Unknown Rx HYDROmorphone [Dilaudid] 0.5 mg IV Q8H PRN syringe 02/05/22 05/24/22 Unknown Rx Tenofovir [Viread] 300 mg PO QDAY tablet 02/05/22 05/24/22 Unknown Rx oxyCODONE /ACETAMINOPHEN [Percocet 1 tab PO Q6H PRN tablet 02/05/22 05/24/22 Unknown Rx 5/325 mg] Active Meds: Active Medications Acetaminophen (Acetaminophen 325 Mg Tab) 650 mg PO Q4H PRN PRN Reason: Pain MILD(1-3)/Fever >100.5/BARRETT Heparin Sodium (Porcine) (Heparin 5,000 Unit/1 Ml Vial) 5,000 unit SUB-Q Q8HR VJ Last Admin: 05/24/22 07:27 Dose: 5,000 unit Sodium Chloride (Nacl 0.9% 1000 Ml) 1,000 mls @ 125 mls/hr IV DIRECT VJ Last Admin: 05/24/22 01:20 Dose: 125 mls/hr Vancomycin HCl 1,500 mg/ (Sodium Chloride) 530 mls @ 333.333 mls/hr IV Q12H VJ Ceftriaxone Sodium (Rocephin/Ns 2 Gm/100 Ml) 2 gm in 100 mls @ 200 mls/hr IV Q24H VJ; Protocol Magnesium Hydroxide (Magnesium Hydroxide (Mom) Oral Liqd Udc) 30 ml PO Q4H PRN PRN Reason: Constipation Ondansetron HCl (Ondansetron 4 Mg/2 Ml Inj) 4 mg IV Q8H PRN PRN Reason: Nausea And Vomiting Sodium Chloride (Sodium Chloride 0.9% 10 Ml Flush Syringe) 10 ml IV BID VJ Sodium Chloride (Sodium Chloride 0.9% 10 Ml Flush Syringe) 10 ml IV PRN PRN PRN Reason: LINE FLUSH Physical Examination Vital Signs Temp Pulse Resp Pulse Ox 102 F H 104 H 16 98 05/23/22 16:21 05/23/22 16:21 05/23/22 16:21 05/23/22 16:21 General appearance: no acute distress, well-nourished HEENT: Positive: PERRL, Mucus Membranes Moist Neck: Positive: neck supple, trachea midline Cardiac: Positive: Reg Rate and Rhythm, S1/S2. Negative: Audible Murmur Lungs: Positive: clear to auscultation, Normal Breath Sounds Neuro: Positive: Grossly Intact Abdomen: Positive: Soft, Active Bowel Sounds. Negative: Tender, Distended Male genitourinary: Positive: normal Skin: Positive: Clear Incision: Cardiac Cath Site Musculoskeletal: No Pain, Normal Range of Motion Extremities: Present: normal, Other (Tenderness with palpation mild swelling) Results 05/23/22 18:13 05/24/22 04:14 Cardiac Enzymes 05/23/22 Range/Units 18:13 AST 18 (5-40) units/L CBC 05/23/22 Range/Units 18:13 WBC 6.9 (4.5-11.0) K/mm3 RBC 4.13 (3.65-5.03) M/mm3 Hgb 12.0 (11.8-15.2) gm/dl Hct 35.5 (35.5-45.6) % Plt Count 119 L (140-440) K/mm3 Lymph # (Auto) 1.7 (1.2-5.4) K/mm3 [place] # (Auto) 0.7 (0.0-0.8) K/mm3 Eos # (Auto) 0.0 (0.0-0.4) K/mm3 Baso # (Auto) 0.0 (0.0-0.1) K/mm3 Comprehensive Metabolic Panel 05/23/22 05/24/22 Range/Units 18:13 04:14 Sodium 139 144 (137-145) mmol/L Potassium 3.7 3.9 (3.6-5.0) mmol/L Chloride 102.0 111.7 H (98-107) mmol/L Carbon Dioxide 25 22 (22-30) mmol/L BUN 18 14 (9-20) mg/dL Creatinine 0.9 0.8 (0.8-1.3) mg/dL Glucose 106 H 128 H (75-100) mg/dL Calcium 8.5 8.1 L (8.4-10.2) mg/dL AST 18 (5-40) units/L ALT 9 (7-56) units/L Alkaline Phosphatase 76 (35-129) units/L Total Protein 6.2 L (6.3-8.2) g/dL Albumin 3.8 L (3.9-5) g/dL EKG interpretations - Telemetry EKG Rhythm: Sinus Rhythm (Sinus rhythm with frequent PVCs) Assessment and Plan 41-year-old male with history of HIV smoker cocaine use history of conversion disorder. States having swelling and pain joints difficult ascertain. Patient wants to leave AGAINST MEDICAL ADVICE. Patient is nonsustained or frequent PVCs not a candidate for beta-kamar given his cocaine use. Suggest an echocardiogram patient wants to leave AGAINST MEDICAL ADVICE - Patient Problems (1) Cocaine abuse Current Visit: Yes Status: Chronic (2) HIV (human immunodeficiency virus infection) Current Visit: Yes Status: Chronic Qualifiers: HIV symptom status: asymptomatic, with no history of HIV-related illness Qualified Code(s): Z21 - Asymptomatic human immunodeficiency virus [HIV] infection status (3) Nonsustained ventricular tachycardia Current Visit: Yes Status: Acute (4) Pain, joint, multiple sites Current Visit: Yes Status: Acute (5) Nicotine dependence Current Visit: No Status: Acute Qualifiers: Nicotine product type: cigarettes Substance use status: in withdrawal Qualified Code(s): F17.213 - Nicotine dependence, cigarettes, with withdrawal
[2022-05-24] MEDS ORDERED: VANCOMYCIN 1,500 MG in SODIUM CHLORIDE 0.9% 500 ML 500 ML IV SCH (12:00)
--- NOTE | 2022-05-26 11:37 | Discharge Summary ---
Providers - Providers Date of Admission: 05/23/22 22:09 Date of discharge: 05/26/22 Attending physician: OMID NICOLE 05/23/22 22:09 Consult to Physician [CONS] Routine Comment: Consulting Provider: IRENE NAVARRO Physician Instructions: Reason For Exam: Fever, Joint pain & swelling, HIV +ve 05/23/22 23:32 Consult to Physician [CONS] Routine Comment: Consulting Provider: TIFFANY SHERIDAN Physician Instructions: Reason For Exam: Nonsustained V. tach 05/24/22 13:16 Consult to Mental Health [CONS] Routine Reason For Exam: conversion disorder Primary care physician: ELENA WEN Hospitalization Reason for admission: diffuse myalgias Condition: Stable Hospital course: 41-year-old male with known history of HIV who is currently on antiretroviral agent with nondetectable viral load, neuropathy and chronic back pain presents to the emergency room today complaining of generalized body aches and fever over the last 24 hours. Patient indicates he has had fever of about 105 F at home. Upon arrival in the emergency room, temperature was 102 F. Patient states he has had diffuse muscular and joint pain which is worse on movement. He denied any of strenuous physical activity. Feveretiology unknown HIV positiveundetectable viral load Generalized myalgias and joint pain Hospital course: 05/24/2022. Patient reports pain all over his body that is out of proportion to the physical exam. Patient will not allow me to touch any portion of his body without complaining of overwhelming pain. Patient was transferred to [facility] January 2022 for concern of transverse myelitis. Patient had extensive work-up here prior to transfer which included brain, cervical, thoracic and lumbar MRIs that were essentially negative. Lumbar puncture was also negative. I have a clinical suspicion for malingering. However, patient does have a fever which is concerning. We will obtain old records from [facility] and await ID consultation. Total CK was normal. Check sed rate and CRP. Patient does have a UDS that is positive for cocaine. Cardiology later obtained discharge records from [facility] that showed patient with a diagnosis of conversion disorder. Patient's pain medications were discontinued and psychiatry consultation was placed. Unfortunately, patient became belligerent with cardiology earlier during hospitalization, along with myself and the nursing supervisor process testing. Patient left AMA. Dedicated discharge time 32 minutes Disposition: 07 LEFT AGAINST MEDICAL ADVICE Final Discharge Diagnosis (Prints w/discharge instructions): Conversion disorder. feveretiology unknown. HIV positiveundetectable viral load. Generalized myalgias and joint pain Core Measure Documentation - Palliative Care Palliative Care/ Comfort Measures: Not Applicable - Core Measures Any of the following diagnoses?: none Exam - Constitutional Vitals: Temp Pulse Resp BP Pulse Ox 98.3 F 85 16 115/87 98 05/23/22 21:54 05/23/22 21:54 05/23/22 21:54 05/23/22 21:54 05/24/22 11:09 General appearance: Present: no acute distress, well-nourished - EENT Eyes: Present: PERRL ENT: hearing intact, clear oral mucosa - Neck Neck: Present: supple, normal ROM - Respiratory Respiratory effort: normal Respiratory: bilateral: CTA - Cardiovascular Heart Sounds: Present: S1 & S2. Absent: rub, click - Extremities Extremities: pulses symmetrical, No edema Peripheral Pulses: within normal limits - Abdominal General gastrointestinal: Present: soft, non-tender, non-distended, normal bowel sounds Male genitourinary: Present: normal - Integumentary Integumentary: Present: clear, warm, dry - Musculoskeletal Musculoskeletal: gait normal, strength equal bilaterally - Psychiatric Psychiatric: appropriate mood/affect, intact judgment & insight - Neurologic Neurologic: CNII-XII intact, moves all extremities Plan Follow up with: ELENA WEN MD [Primary Care Provider] - 3-5 Days
--- NOTE | 2022-05-26 16:42 | Electrocardiograph Report ---
[facility] Test Date: 2022-05-23 Test Time: 16:48:40 Pat Name: ZAINA MORALES Department: Room: A353 1 Gender: M [employer]: RAFIQ : 1980 Requested By: ELY CEDILLO Order Number: [id number] Reading MD: Candace Peacock Measurements Intervals [place] Rate: 88 P: 31 GA: 122 QRS: 53 QRSD: 84 T: 50 QT: 366 QTc: 443 Interpretive Statements Sinus rhythm Frequent and consecutive ventricular ectopic beats Left ventricular hypertrophy No previous ECG available for comparison Electronically Signed On 05-26-2022 16:41:56 EDT by Candace Peacock
--- NOTE | 2022-05-27 11:52 | Consultation ---
History of Present Illness - Reason for Consult Consult date: 05/27/22 - Chief Complaint Chief complaint: Fever Joint pain and swelling - History of Present Psychiatric Illness PER NOTE: 41-year-old male with known history of HIV who is currently on antiretroviral agent with nondetectable viral load, neuropathy and chronic back pain presents to the emergency room today complaining of generalized body aches and fever over the last 24 hours. Patient indicates he has had fever of about 105 F at home. Upon arrival in the emergency room, temperature was 102 F. Patient states he has had diffuse muscular and joint pain which is worse on movement. He denies any of strenuous physical activity. Denies any sick contacts and no recent travel. Denies any contact with anyone with COVID-19. Patient also indicates he had a negative [id number] COVID test yesterday. Patient denies any sore throat or oral thrush. Patient was recently admitted admitted in this facility sometime in January and subsequently transferred to [place] for possible transverse myelitis. Patient is a 41 year-old male with no previous psychiatric diagnosis seen for mental health evaluation. Patient seen today during breathing treatment. Patient alert and oriented x4. Patient reports history of respiratory issues with worsening yesterday while patient was eating, "I just couldn't breath." Patient denies history of anxiety or panic attacks prior to the episode yesterday when patient couldn't breathe and denies anxiety today. Patient denies depressive symptoms, denies SI HI AVH. Pt reports sleeping well with good appetite. PAST PSYCHIATRIC HISTORY Diagnoses: denies dx Suicide attempts or Self-harm behavior: Denies Prior psychiatric hospitalizations: Denies Substance Abuse history: Denies Previous psychiatric medications tried: Denies Outpatient treatment:Denies PAST MEDICAL HISTORY: None reported Family Psychiatric History: None reported or documented SOCIAL HISTORY Living arrangement: lives with son Marital status: Single Employment status: Unemployed Education: 11th grade Abuse: None REVIEW OF SYSTEMS Constitutional: Negative for weight loss ENT: Negative for stridor Respiratory: Negative for cough or hemoptysis All other systems reviewed and are negative MENTAL STATUS EXAMINATION General Appearance and Behavior: Age appropriate, good hygiene, wearing appropriate clothes, good eye contact, calm, cooperative Cooperation: Cooperative Psychomotor Behavior: Psychomotor normal Mood: calm Affect and affective range: congruent with stated mood Thought Process: goal directed Thought Content:reality oriented Speech: Normal tone and pace Suicidal Ideation:Denies Homicidal Ideation: Denies Hallucinations:Denies Delusions: None elicited Impulse Control: Normal Insight and Judgment: Normal Memory: Normal Attention: Attentive Orientation: Alert, oriented Assessment and Plan Treatment Plan Start olanzapine 2.5 mg BID and trazodone 25 mg qhs for insomnia Risks, benefits and alternatives of medications discussed with the patient, questions answered and consent obtained from patient. PSYCHOTHERAPY: Supportive psychotherapy provided MEDICAL: Per primary team DELIRIUM PRECAUTIONS: Please re-orient patient frequently, keep lights on during the day, and minimize benzodiazepines and opiates as these medications could worsen patient's confusion. SIDE LASTER TACK: Defer to primary DISPOSITION:Do not recommend acute inpatient psychiatric hospitalization at this time. [facility] will provide patient with outpatient resources Will sign off. Thank you for the consult. Please contact with any questions and/or concerns. Case staffed with Dr. Cortez Medications and Allergies Medications and Allergies Allergies Allergy/AdvReac Type Severity Reaction Status Date / Time gabapentin Allergy Mild Anaphylaxis Verified 05/23/22 16:27 Sulfa (Sulfonamide Allergy Mild Anaphylaxis Verified 05/23/22 16:27 Antibiotics) Home Medications Medication Instructions Recorded Confirmed Last Taken Type ALBUTEROL NEB's [Proventil 0.083% 2.5 mg IH Q4HRT PRN nebu 02/05/22 05/24/22 Unknown Rx NEBS] Acetaminophen [Acetaminophen TAB] 650 mg PO Q4H PRN tablet 02/05/22 05/24/22 Unknown Rx Benzonatate [Tessalon Perles] 100 mg PO Q12H PRN capsule 02/05/22 05/24/22 Unknown Rx Cyclobenzaprine [Flexeril 10 MG 10 mg PO TID tablet 02/05/22 05/24/22 Unknown Rx TAB] Dolutegravir [Tivicay] 50 mg PO QDAY tablet 02/05/22 05/24/22 Unknown Rx Emtricitabine [Emtriva] 200 mg PO QDAY capsule 02/05/22 05/24/22 Unknown Rx Enoxaparin 40 mg SUB-Q QDAY@2200 syringe 02/05/22 05/24/22 Unknown Rx HYDROmorphone [Dilaudid] 0.5 mg IV Q8H PRN syringe 02/05/22 05/24/22 Unknown Rx Tenofovir [Viread] 300 mg PO QDAY tablet 02/05/22 05/24/22 Unknown Rx oxyCODONE /ACETAMINOPHEN [Percocet 1 tab PO Q6H PRN tablet 02/05/22 05/24/22 Unknown Rx 5/325 mg] Mental Status Exam - Vital signs Last Vital Signs Temp 98.3 F 05/23/22 21:54 Pulse 85 05/23/22 21:54 Resp 16 05/23/22 21:54 BP 115/87 05/23/22 21:54 Pulse Ox 98 05/24/22 11:09 Results Result Diagrams: 05/23/22 18:13 05/24/22 04:14 All other labs normal.
== END 2022-05-24 15:30 | disposition left against medical advice (07) | DRG 864 ==
LOC: ED 15:30 → 3A 22:09
PROVIDERS: ADMIT Internal Medicine Geriatric Medicine; ATTEND Hospitalist
DX: R50.9 Fever, unspecified (principal); F14.10 Cocaine abuse, uncomplicated; I47.2 Ventricular tachycardia; F17.213 Nicotine dependence, cigarettes, with withdrawal; Z21 Asymptomatic human immunodeficiency virus [HIV] infection status; F44.7 Conversion disorder with mixed symptom presentation; Z20.822 Contact with and (suspected) exposure to COVID-19; M79.10 Myalgia, unspecified site
CPT/HCPCS: 36415; 71045; 80048; 80053; 80307; 81001; 82140; 82550; 83735; 84484; 85025; 86140; 87040; 93005; G0378; J0692; J0696; J1170; J1644; J1885; J2270; J2405; J3370; J7030; J7040; U0003